=== PATIENT | female | born 1940 | race Caucasian/White ===

== ENCOUNTER → 2016-09-29 | Outpatient (CLI) | payer MEDICARE, OTHER | LOC: RAD 09:21 | PROVIDERS: ATTEND Specialist | DX: C34.32 Malignant neoplasm of lower lobe, left bronchus or lung (principal) | CPT/HCPCS: 71260; 74177 ==

== ENCOUNTER → 2016-11-24 | Outpatient (CLI) | payer MEDICARE, OTHER | LOC: RAD 07:02 | PROVIDERS: ATTEND Internal Medicine | DX: C34.32 Malignant neoplasm of lower lobe, left bronchus or lung (principal) | CPT/HCPCS: 71260; 74177 ==

== ENCOUNTER → 2017-01-01 | Outpatient (CLI) | payer MEDICARE, OTHER | LOC: WI 07:56 | PROVIDERS: ATTEND Family Medicine | DX: Z12.31 Encounter for screening mammogram for malignant neoplasm of breast (principal) | CPT/HCPCS: 77063; G0202; 77067 ==

== ENCOUNTER → 2017-01-19 | Outpatient (CLI) | payer MEDICARE, OTHER | LOC: RAD 07:57 | PROVIDERS: ATTEND Internal Medicine | DX: C34.32 Malignant neoplasm of lower lobe, left bronchus or lung (principal) | CPT/HCPCS: 71260; 74177 ==

== ENCOUNTER → 2017-03-16 | Outpatient (CLI) | payer MEDICARE, OTHER ==
--- NOTE | 2017-03-16 10:17 | RADIOLOGY REPORT (SQ) ---
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 Images reviewed with lung, soft tissue and bone windows. Reconstructed coronal a nd sagittal MPR images reviewed. All images stored on PACS. CT scan of the abdomen and pelvis performed with intravenous and without oral contrastusing helical s karina technique with dynamic intravenous contrast injection. Images reviewed with lung, soft tissu e and bone windows. Reconstructed coronal and sagittal MPR images reviewed. Delayed images for eval uation of the urinary system also acquired and evaluated. All images stored on PACS. All CT scanners at this facility use dose modulation, iterative reconstruction, and/or weight based d osing when appropriate to reduce radiation dose to as low as reasonably achievable (ALARA). [facility]: Dose Right [facility]: CareDose [facility]: Dose Right [facility]: Teradose 4D [facility]: [employer] RADIATION DOSE: Up-to-date CT equipment and radiation dose reduction techniques were employed. CTDIv ol: 4.7 - 15.7 mGy. DLP: 1218 mGy-cm. . LIMITATIONS: None. FINDINGS: CHEST: LUNGS AND PLEURA: No change in appearance of the lungs and parenchyma compared to previous exams. St able findings are as follows: 11 mm scarring medial right upper lobe/upper hilum image 45 13 to 14 mm stable nodule just above the minor fissure right upper lobe axial image 60 [place] from lung parenchymal wedge resections in the medial right upper lobe and superior segment lo wer lobe Stable noncalcified 5 mm right face and 9 mm left base lung parenchymal nodules HILAR AND MEDIASTINAL STRUCTURES: No identified masses or abnormal nodes. HEART AND VASCULAR STRUCTURES: No aneurysm or dissection. No central pulmonary emboli. No pericardi al effusion. HARDWARE: Right-sided permanent central line tip superior vena cava THYROID AND OTHER SOFT TISSUES: No masses. No adenopathy. BONES: No significant finding. OTHER: No other significant finding. ABDOMEN AND PELVIS: LIVER: Normal size. No masses or dilated ducts. SPLEEN: Normal size. No focal lesions. PANCREAS: No masses. No significant calcifications. No adjacent inflammation or peripancreatic fluid collections. Pancreatic duct not dilated. GALLBLADDER: Multiple stones without gallbladder wall thickening or pericholecystic fluid. ADRENAL GLANDS: No significant masses or asymmetry. RIGHT KIDNEY AND URETER: Post wedge resection of a right lower pole mass. Several small subcentimete r right renal cortical cysts are present, stable. No right kidney stones or hydronephrosis/hydrouret er LEFT KIDNEY AND URETER: No solid masses. No significant calcification. No hydronephrosis or hydrouret er. Stable 1 cm left lower pole renal cortical cyst AORTA AND VESSELS: Heavily calcified abdominal aorta and major branches without abdominal aortic aneu rysm RETROPERITONEUM: No retroperitoneal adenopathy, hemorrhage or masses. BOWEL AND PERITONEAL CAVITY: No masses or inflammatory changes. No free fluid or peritoneal masses. Descending colon and sigmoid colon diverticuli without CT signs of acute diverticulitis. Left inguin al hernia containing nonobstructed distal descending colon. APPENDIX: Not identified. No right lower quadrant inflammation ABDOMINAL WALL: Right lower quadrant inguinal hernia containing nonobstructed distal descending colon BONES: No significant or acute findings. OTHER: No other significant finding. IMPRESSION: Stable appearance of the chest abdomen and pelvis Left inguinal hernia containing nonobstructed distal descending colon TECHNICAL DOCUMENTATION: JOB ID: [id number] Quality ID # 436: Final reports with documentation of one or more dose reduction techniques (e.g., Au tomated exposure control, adjustment of the mA and/or kV according to patient size, use of iterative reconstruction technique) 2010 [employer]- All Rights Reserved
== END ==
LOC: RAD 07:36
PROVIDERS: ATTEND Internal Medicine
DX: C34.32 Malignant neoplasm of lower lobe, left bronchus or lung (principal)
CPT/HCPCS: 71260; 74177; 82565

== ENCOUNTER → 2017-05-11 | Outpatient (CLI) | payer MEDICARE, OTHER ==
--- NOTE | 2017-05-11 11:50 | RADIOLOGY REPORT (SQ) ---
EXAM DESCRIPTION: CT CHEST WITH; CT ABD/PELVIS WITH IV ONLY COMPLETED DATE/TIME: 05/11/2017 8:30 am REASON FOR STUDY: LUNG CA (C34.32) C34.32 MALIGNANT NEOPLASM OF LOWER LOBE, LEFT BRONCHUS OR GABRIELLA COMPARISON: PET-CT 06/26/2012 CT chest abdomen pelvis 12/27/2012, 11/03/2013, 10/26/2014, 10/28/2015, 08/04/2016, 09/29/2016, 03/16/2017 CONTRAST TYPE AND DOSE: contrast/concentration: Isovue 300.00 mg/ml; Total Contrast Delivered: 69.0 ml; Total Saline Delivered: 65.0 ml RENAL FUNCTION: Creatinine 1.2 TECHNIQUE: CT scan of the chest performed using helical scanning technique with dynamic intravenous contrast injection. Images reviewed with lung, soft tissue and bone windows. Reconstructed coronal a nd sagittal MPR images reviewed. All images stored on PACS. CT scan of the abdomen and pelvis performed with intravenous and with oral contrastusing helical scan daniella technique with dynamic intravenous contrast injection. Images reviewed with lung, soft tissue a nd bone windows. Reconstructed coronal and sagittal MPR images reviewed. Delayed images for evaluat ion of the urinary system also acquired and evaluated. All images stored on PACS. All CT scanners at this facility use dose modulation, iterative reconstruction, and/or weight based d osing when appropriate to reduce radiation dose to as low as reasonably achievable (ALARA). [facility]: Dose Right [facility]: CareDose [facility]: Dose Right [facility]: Teradose 4D [facility]: [employer] RADIATION DOSE: Up-to-date CT equipment and radiation dose reduction techniques were employed. CTDIv ol: 4.5 - 6.4 mGy. DLP: 748 mGy-cm. . LIMITATIONS: None. FINDINGS: CHEST: LUNGS AND PLEURA: No worrisome pulmonary nodules. There are surgical costa in the medial right agusto g apex, and superior segment left lower lobe. Scarring in the medial right upper lobe on axial image 42, with a 8 to 9 mm area of nodularity, sligh tly smaller than on 08/04/2016. Stable spiculated nodule in the right middle lobe 14 mm in diameter axial image 64, unchanged from ltiple previous exams. No pleural effusions. No pneumothorax. No acute infiltrates. HILAR AND MEDIASTINAL STRUCTURES: No identified masses or abnormal nodes. HEART AND VASCULAR STRUCTURES: No aneurysm or dissection. No central pulmonary emboli. No pericardi al effusion. HARDWARE: Left-sided permanent line tip in the superior vena cava THYROID AND OTHER SOFT TISSUES: No masses. No adenopathy. BONES: No significant finding. OTHER: No other significant finding. ABDOMEN AND PELVIS: LIVER: Normal size. No masses. No dilated ducts. SPLEEN: Normal size. No focal lesions. PANCREAS: No masses. No significant calcifications. No adjacent inflammation or peripancreatic fluid collections. Pancreatic duct not dilated. GALLBLADDER: Gallstones. No inflammatory changes to suggest cholecystitis. ADRENAL GLANDS: 8 mm right adrenal nodule unchanged from 2012. Left adrenal gland unremarkable. RIGHT KIDNEY AND URETER: No solid masses. No significant calcification. No hydronephrosis or hydroure ter. Stable cortical scarring right lower pole kidney from prior wedge resection of a renal mass. S table subcentimeter cyst right upper pole kidney. LEFT KIDNEY AND URETER: No solid masses. No significant calcification. No hydronephrosis or hydrouret er. Stable small 1 cm lower pole renal cortical cyst. AORTA AND VESSELS: Heavily calcified. No aneurysm. No dissection. Renal arteries, SMA, celiac withou t stenosis. RETROPERITONEUM: No retroperitoneal adenopathy, hemorrhage or masses. BOWEL AND PERITONEAL CAVITY: No masses or inflammatory changes. No free fluid or peritoneal masses. Colonic diverticuli without CT signs of diverticulitis. APPENDIX: Normal. ABDOMINAL WALL: Left lower quadrant inguinal hernia containing a short segment of nonobstructed dista l descending colon BONES: No significant or acute findings. OTHER: No other significant finding. IMPRESSION: Stable appearance of the chest abdomen pelvis compared to previous studies TECHNICAL DOCUMENTATION: JOB ID: [id number] Quality ID # 436: Final reports with documentation of one or more dose reduction techniques (e.g., Au tomated exposure control, adjustment of the mA and/or kV according to patient size, use of iterative reconstruction technique) 2010 [employer]- All Rights Reserved
== END ==
LOC: RAD 07:37
PROVIDERS: ATTEND Internal Medicine Hematology & Oncology
DX: C34.32 Malignant neoplasm of lower lobe, left bronchus or lung (principal)
CPT/HCPCS: 71260; 74177

== ENCOUNTER → 2017-07-06 | Outpatient (CLI) | payer MEDICARE, OTHER ==
--- NOTE | 2017-07-06 16:09 | RADIOLOGY REPORT (SQ) ---
EXAM DESCRIPTION: CT CHEST WITH; CT ABD/PELVIS WITH IV ONLY COMPLETED DATE/TIME: 07/06/2017 9:12 am REASON FOR STUDY: LUNG CA (C34.32) C34.32 MALIGNANT NEOPLASM OF LOWER LOBE, LEFT BRONCHUS OR GABRIELLA COMPARISON: CT chest abdomen pelvis 05/11/2017, 03/16/2017, 01/19/2017, 09/29/2016, 12/27/2012 PET-CT 06/26/2012 CONTRAST TYPE AND DOSE: contrast/concentration: Isovue 300.00 mg/ml; Total Contrast Delivered: 69.0 ml; Total Saline Delivered: 65.0 ml RENAL FUNCTION: Creatinine 1.0 TECHNIQUE: CT scan of the chest performed using helical scanning technique with dynamic intravenous contrast injection. Images reviewed with lung, soft tissue and bone windows. Reconstructed coronal a nd sagittal MPR images reviewed. All images stored on PACS. CT scan of the abdomen and pelvis performed with intravenous and without oral contrastusing helical s karina technique with dynamic intravenous contrast injection. Images reviewed with lung, soft tissu e and bone windows. Reconstructed coronal and sagittal MPR images reviewed. Delayed images for eval uation of the urinary system also acquired and evaluated. All images stored on PACS. All CT scanners at this facility use dose modulation, iterative reconstruction, and/or weight based d osing when appropriate to reduce radiation dose to as low as reasonably achievable (ALARA). [facility]: Dose Right [facility]: CareDose [facility]: Dose Right [facility]: Teradose 4D [facility]: [employer] RADIATION DOSE: Up-to-date CT equipment and radiation dose reduction techniques were employed. CTDIv ol: 4.5 - 6.9 mGy. DLP: 802 mGy-cm. . LIMITATIONS: None. FINDINGS: CHEST: LUNGS AND PLEURA: No new nodules, infiltrates, or pleural effusion. There are surgical costa in the medial right lung apex and superior segment left lower lobe, unchan ged. Stable spiculated nodule right middle lobe axial image 63 and coronal image 41. Stable noncalcified granuloma anterior lingula axial image 55. HILAR AND MEDIASTINAL STRUCTURES: No identified masses or abnormal nodes. HEART AND VASCULAR STRUCTURES: No aneurysm or dissection. No central pulmonary emboli. No pericardi al effusion. HARDWARE: Left-sided permanent central line, tip superior vena cava. THYROID AND OTHER SOFT TISSUES: No masses. No adenopathy. BONES: No significant finding. OTHER: No other significant finding. ABDOMEN AND PELVIS: LIVER: Normal size. No masses. No dilated ducts. SPLEEN: Normal size. No focal lesions. PANCREAS: No masses. No significant calcifications. No adjacent inflammation or peripancreatic fluid collections. Pancreatic duct not dilated. GALLBLADDER: Gallstones. No inflammatory changes to suggest cholecystitis. ADRENAL GLANDS: 8 mm right adrenal nodule unchanged from 2012 RIGHT KIDNEY AND URETER: Right lower pole cortical thinning from wedge resection for renal mass. No solid nodules on today's CT exam. Less than 1 cm cyst right lower pole kidney. No significant calcif ication. No hydronephrosis or hydroureter. LEFT KIDNEY AND URETER: No solid masses. Benign less than 2 cm diameter left renal cysts. No signif icant calcification. No hydronephrosis or hydroureter. AORTA AND VESSELS: No aneurysm. Heavily calcified abdominal aorta without aneurysm. Suspect at leas t 50% diameter renal artery stenosis on the left. RETROPERITONEUM: No retroperitoneal adenopathy, hemorrhage or masses. BOWEL AND PERITONEAL CAVITY: No masses or inflammatory changes. No free fluid or peritoneal masses. APPENDIX: Not identified. No right lower quadrant inflammatory change ABDOMINAL WALL: Left inguinal hernia containing mesenteric fat and nonobstructed colon on axial image s 60-63, and coronal images 31-34. PELVIS: Post hysterectomy. No adenopathy. No free fluid. BONES: Diffuse degenerative disc changes lumbar spine. OTHER: No other significant finding. IMPRESSION: No CT evidence of metastatic lung cancer or renal cell carcinoma TECHNICAL DOCUMENTATION: JOB ID: [id number] Quality ID # 436: Final reports with documentation of one or more dose reduction techniques (e.g., Au tomated exposure control, adjustment of the mA and/or kV according to patient size, use of iterative reconstruction technique) 2010 [employer]- All Rights Reserved
== END ==
LOC: RAD 08:18
PROVIDERS: ATTEND Internal Medicine
DX: C34.32 Malignant neoplasm of lower lobe, left bronchus or lung (principal)
CPT/HCPCS: 71260; 74177

== ENCOUNTER → 2017-08-31 | Outpatient (CLI) | payer MEDICARE, OTHER ==
--- NOTE | 2017-08-31 10:55 | RADIOLOGY REPORT (SQ) ---
EXAM DESCRIPTION: CT CHEST WITH COMPLETED DATE/TIME: 08/31/2017 7:50 am REASON FOR STUDY: LUNG CA (C34.32) C34.32 MALIGNANT NEOPLASM OF LOWER LOBE, LEFT BRONCHUS OR GABRIELLA COMPARISON: 07/06/2017 05/11/2017 TECHNIQUE: CT scan of the chest performed using helical scanning technique with dynamic intravenous contrast injection. Images reviewed with lung, soft tissue and bone windows. Reconstructed coronal and sagittal MPR images reviewed. All images stored on PACS. All CT scanners at this facility use dose modulation, iterative reconstruction, and/or weight based d osing when appropriate to reduce radiation dose to as low as reasonably achievable (ALARA). [facility]: Dose Right [facility]: CareDose [facility]: Dose Right [facility]: Teradose 4D [facility]: [employer] CONTRAST TYPE AND DOSE: 69 cc Isovue 370- low osmolar. RENAL FUNCTION: Creatinine 1.1 BUN 21 RADIATION DOSE: Total exam DLP: 827 mGy cm. LIMITATIONS: None. FINDINGS: LUNGS AND PLEURA: Once again there is seen a stable spiculated nodule in the right middle lobe. There is a small stable nodule seen anteriorly in the lingula on image 57. No new nodules are seen. There is no pleural effusion. HILAR AND MEDIASTINAL STRUCTURES: No identified masses or abnormal nodes. HEART AND VASCULAR STRUCTURES: No aneurysm or dissection. No central pulmonary emboli. No pericardi al effusion. HARDWARE: Injection port is present on the left. The catheter is in the superior vena cava. UPPER ABDOMEN: See separate report of the CT of the abdomen. THYROID AND OTHER SOFT TISSUES: No masses. No adenopathy. BONES: Mild scoliosis. No metastatic lesions are seen in the bones. OTHER: No other significant finding. IMPRESSION: Stable findings in the chest. TECHNICAL DOCUMENTATION: JOB ID: [id number] Quality ID # 436: Final reports with documentation of one or more dose reduction techniques (e.g., Au tomated exposure control, adjustment of the mA and/or kV according to patient size, use of iterative reconstruction technique) 2010 [employer]- All Rights Reserved
--- NOTE | 2017-08-31 11:47 | RADIOLOGY REPORT (SQ) ---
EXAM DESCRIPTION: CT ABD/PELVIS WITH IV ONLY COMPLETED DATE/TIME: 08/31/2017 7:50 am REASON FOR STUDY: LUNG CA (C34.32) C34.32 MALIGNANT NEOPLASM OF LOWER LOBE, LEFT BRONCHUS OR GABRIELLA COMPARISON: 07/06/2017 TECHNIQUE: CT scan of the abdomen and pelvis performed using helical scanning technique with dynamic intravenous contrast injection. No oral contrast. Images reviewed with lung, soft tissue, and bone windows. Reconstructed coronal and sagittal MPR images reviewed. Delayed images for evaluation of the urinary system also acquired. All images stored on PACS. All CT scanners at this facility use dose modulation, iterative reconstruction, and/or weight based d osing when appropriate to reduce radiation dose to as low as reasonably achievable (ALARA). [facility]: Dose Right [facility]: CareDose [facility]: Dose Right [facility]: Teradose 4D [facility]: [employer] CONTRAST TYPE AND DOSE: contrast/concentration: Isovue 370.00 mg/ml; Total Contrast Delivered: 69.0 ml; Total Saline Delivered: 65.0 ml RENAL FUNCTION: Creatinine 1.1 BUN 21 RADIATION DOSE: CT Rad equipment meets quality standard of care and radiation dose reduction techniq ues were employed. CTDIvol: 4.6 - 7.3 mGy. DLP: 827 mGy-cm.. LIMITATIONS: None. FINDINGS: LOWER CHEST: See separate report of the CT of the chest. LIVER: Normal size. No masses. No dilated ducts. SPLEEN: Normal size. No focal lesions. PANCREAS: No masses. No significant calcifications. No adjacent inflammation or peripancreatic fluid collections. Pancreatic duct not dilated. GALLBLADDER: Gallstones are present. There is no gallbladder wall thickening or pericholecystic flui d. ADRENAL GLANDS: Stable subcentimeter right adrenal nodule. RIGHT KIDNEY AND URETER: No solid masses. Surgical changes in the lower pole. No significant calci fications. No hydronephrosis or hydroureter. LEFT KIDNEY AND URETER: No solid masses. No significant calcifications. No hydronephrosis or hydr oureter. AORTA AND VESSELS: No aneurysm. No dissection. Atherosclerosis. Plaques are present at the origins of celiac, SMA, and renal arteries. Considerable atherosclerosis is present in the proximal left re nal artery. RETROPERITONEUM: No retroperitoneal adenopathy, hemorrhage or masses. BOWEL AND PERITONEAL CAVITY: Diverticulosis involving the descending and sigmoid colon. No acute inf lammatory changes are seen. APPENDIX: Not identified. PELVIS: The urinary bladder is normal. Uterus is absent. There is no adnexal mass or fluid collecti on. ABDOMINAL WALL: There is a small anterolateral hernia. See the image 58 series 8. Contains a nonobs tructed loop of bowel. BONES: Mild scoliosis. No osseous metastases seen. OTHER: No other significant finding. IMPRESSION: 1. No metastases are seen in the abdomen or pelvis. 2. Cholelithiasis with no evidence of cholecystitis. 3. Stable right adrenal nodule. 4. Surgical changes in the right kidney. 5. Atherosclerosis as described. 6. Diverticulosis coli. 7. Abdominal wall hernia as described. TECHNICAL DOCUMENTATION: JOB ID: [id number] Quality ID # 436: Final reports with documentation of one or more dose reduction techniques (e.g., Au tomated exposure control, adjustment of the mA and/or kV according to patient size, use of iterative reconstruction technique) 2010 [employer]- All Rights Reserved
== END ==
LOC: RAD 07:15
PROVIDERS: ATTEND Internal Medicine
DX: C34.32 Malignant neoplasm of lower lobe, left bronchus or lung (principal)
CPT/HCPCS: 71260; 74177

== ENCOUNTER 2017-10-29 12:43 | Outpatient (CLI) | payer MEDICARE, OTHER ==
[2017-10-29] MEDS ORDERED: NORMAL SALINE 1000 ML 1,000 ML IV PRN (13:08)
[2017-10-29 13:16] VITALS: BP 115/49
== END 2017-10-29 15:16 | disposition home or self-care (01) ==
LOC: II 12:43 → 5TH 13:37 → II 15:16
PROVIDERS: ATTEND Internal Medicine
PROC: 3E0437Z Introduction of Electrolytic and Water Balance Substance into Central Vein, Percutaneous Approach (ICD-10-PCS; principal; 2017-10-29)
DX: E86.0 Dehydration (principal); C34.32 Malignant neoplasm of lower lobe, left bronchus or lung
CPT/HCPCS: 96360

== ENCOUNTER → 2017-11-01 | Outpatient (CLI) | payer MEDICARE, OTHER ==
--- NOTE | 2017-11-01 13:34 | RADIOLOGY REPORT (SQ) ---
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 Images reviewed with lung, soft tissue and bone windows. Reconstructed coronal a nd sagittal MPR images reviewed. All images stored on PACS. CT scan of the abdomen and pelvis performed with intravenous and without oral contrastusing helical s karina technique with dynamic intravenous contrast injection. Images reviewed with lung, soft tissu e and bone windows. Reconstructed coronal and sagittal MPR images reviewed. Delayed images for eval uation of the urinary system also acquired and evaluated. All images stored on PACS. All CT scanners at this facility use dose modulation, iterative reconstruction, and/or weight based d osing when appropriate to reduce radiation dose to as low as reasonably achievable (ALARA). [facility]: Dose Right [facility]: CareDose [facility]: Dose Right [facility]: Teradose 4D [facility]: [employer] RADIATION DOSE: CT Rad equipment meets quality standard of care and radiation dose reduction techniq ues were employed. CTDIvol: 5.7 - 9.7 mGy. DLP: 1117 mGy-cm. . LIMITATIONS: None. FINDINGS: CHEST: LUNGS AND PLEURA: No new findings worrisome for recurrent or metastatic disease. There are multiple pulmonary findings which are stable compared to studies dating back to 2013 as follows: Old staple line medial right upper lobe Minimal scarring along the anterior segmental bronchus right upper lobe Stable spiculated right middle lobe 10 mm nodule axial image 65 Stable left lower lobe staple line with adjacent bandlike scarring in the left lower lobe Stable 6 mm nodule medial left lung base No acute infiltrates. No pleural effusion. No pneumothorax. HILAR AND MEDIASTINAL STRUCTURES: No identified masses or abnormal nodes. HEART AND VASCULAR STRUCTURES: No aneurysm or dissection. No central pulmonary emboli. No pericardi al effusion. HARDWARE: Left-sided permanent central line tip superior vena cava THYROID AND OTHER SOFT TISSUES: No masses. No adenopathy. BONES: No significant finding. OTHER: No other significant finding. ABDOMEN AND PELVIS: LIVER: Normal size. No masses. No dilated ducts. SPLEEN: Normal size. No focal lesions. PANCREAS: No masses. No significant calcifications. No adjacent inflammation or peripancreatic fluid collections. Pancreatic duct not dilated. GALLBLADDER: Gallstones. No inflammatory changes to suggest cholecystitis. ADRENAL GLANDS: Stable small bilateral adrenal nodules RIGHT KIDNEY AND URETER: No solid masses. Subcentimeter cysts in the right mid and upper pole kidney . Partial nephrectomy right lower pole. No significant calcification. No hydronephrosis or hydroure ter. LEFT KIDNEY AND URETER: No solid masses. Stable 1 cm cyst posterior left mid pole kidney. 5 mm intr arenal nonobstructive calculus posterior left mid pole kidney. No hydronephrosis or hydroureter. AORTA AND VESSELS: Heavily calcified abdominal aorta without aneurysm. Calcified visceral artery josesito gins. RETROPERITONEUM: No retroperitoneal adenopathy, hemorrhage or masses. BOWEL AND PERITONEAL CAVITY: No masses or inflammatory changes. No free fluid or peritoneal masses. Colon diverticulosis without CT signs of acute diverticulitis APPENDIX: Normal. ABDOMINAL WALL: No masses. No hernias. PELVIS: No mass or free fluid. Normal bladder. Post hysterectomy BONES: No significant or acute findings. OTHER: No other significant finding. IMPRESSION: Stable appearance of the chest abdomen pelvis. No new lesions. TECHNICAL DOCUMENTATION: JOB ID: [id number] Quality ID # 436: Final reports with documentation of one or more dose reduction techniques (e.g., Au tomated exposure control, adjustment of the mA and/or kV according to patient size, use of iterative reconstruction technique) 2010 [employer]- All Rights Reserved
== END ==
LOC: RAD 12:28
PROVIDERS: ATTEND Internal Medicine
DX: C34.32 Malignant neoplasm of lower lobe, left bronchus or lung (principal)
CPT/HCPCS: 71260; 74177

== ENCOUNTER → 2017-12-28 | Outpatient (CLI) | payer MEDICARE, OTHER ==
--- NOTE | 2017-12-28 09:43 | RADIOLOGY REPORT (SQ) ---
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 Images reviewed with lung, soft tissue and bone windows. Reconstructed coronal a nd sagittal MPR images reviewed. All images stored on PACS. CT scan of the abdomen and pelvis performed with intravenous and without oral contrastusing helical s karina technique with dynamic intravenous contrast injection. Images reviewed with lung, soft tissu e and bone windows. Reconstructed coronal and sagittal MPR images reviewed. Delayed images for eval uation of the urinary system also acquired and evaluated. All images stored on PACS. All CT scanners at this facility use dose modulation, iterative reconstruction, and/or weight based d osing when appropriate to reduce radiation dose to as low as reasonably achievable (ALARA). [facility]: Dose Right [facility]: CareDose [facility]: Dose Right [facility]: Teradose 4D [facility]: Smart Technologies RADIATION DOSE: CT Rad equipment meets quality standard of care and radiation dose reduction techniq ues were employed. CTDIvol: 4.6 - 7.0 mGy. DLP: 809 mGy-cm. . LIMITATIONS: None. FINDINGS: CHEST: LUNGS AND PLEURA: In the medial left lung base on axial image 86, an 11 mm nodule is present in the l eft lower lobe adjacent to the dorsal aspect of the descending thoracic aorta. This is larger of yuri n on previous studies were it measured 6-7 mm in size. No pleural effusion. No pneumothorax. Multiple findings in the lung parenchyma bilaterally are stable as follows: Old staple line medial right upper lobe And linear scarring anterior segmental bronchus right upper lobe 10 mm spiculated nodule right middle lobe Left lower lobe staple line with bandlike scarring HILAR AND MEDIASTINAL STRUCTURES: No identified masses or abnormal nodes. HEART AND VASCULAR STRUCTURES: No aneurysm or dissection. No central pulmonary emboli. No pericardi al effusion. Aortic valve calcification. Mild spotty coronary artery calcifications. HARDWARE: Left-sided permanent central line tip superior vena cava THYROID AND OTHER SOFT TISSUES: No masses. No adenopathy. BONES: No significant finding. OTHER: No other significant finding. ABDOMEN AND PELVIS: LIVER: Normal size. No masses. No dilated ducts. SPLEEN: Normal size. No focal lesions. PANCREAS: No masses. No significant calcifications. No adjacent inflammation or peripancreatic fluid collections. Pancreatic duct not dilated. GALLBLADDER: Multiple stones without gallbladder wall thickening or pericholecystic fluid. ADRENAL GLANDS: Stable small subcentimeter bilateral adrenal nodules RIGHT KIDNEY AND URETER: No solid masses. No significant calcification. No hydronephrosis or hydroure ter. Chronic cortical scarring right lower pole kidney LEFT KIDNEY AND URETER: 1.7 cm enhancing mass anterior edge left lower pole kidney axial image 34, co dru image 49, and sagittal image 50, worrisome for small primary renal cell tumor. Intrarenal left lower pole nonobstructive 5 mm stone. No hydronephrosis or hydroureter. AORTA AND VESSELS: No aneurysm. No dissection. Heavily calcified abdominal aorta and major visceral arteries. RETROPERITONEUM: No retroperitoneal adenopathy, hemorrhage or masses. BOWEL AND PERITONEAL CAVITY: No masses or inflammatory changes. No free fluid or peritoneal masses. Descending and sigmoid colon diverticuli without CT signs of acute diverticulitis. There is a left l ower quadrant femoral hernia containing nonobstructed distal descending colon best shown on axial lynette ges 56-61, and sagittal image 52. APPENDIX: Normal. ABDOMINAL WALL: Left lower quadrant femoral hernia containing nonobstructed distal descending colon PELVIS: No mass or free fluid. Normal bladder. Post hysterectomy BONES: No significant or acute findings. OTHER: No other significant finding. IMPRESSION: Increase in size of smooth round nodule in the left lung base, dorsal to the descending thoracic aorta. 1.7 cm enhancing nodule in the left lower pole kidney worrisome for small primary renal cell neoplasm . Left femoral hernia TECHNICAL DOCUMENTATION: JOB ID: [id number] Quality ID # [id number]: Final reports with documentation of one or more dose reduction techniques (e.g., Au tomated exposure control, adjustment of the mA and/or kV according to patient size, use of iterative reconstruction technique) 2010 [employer]- All Rights Reserved Reading location - IP/workstation name: [email or web address]
== END ==
LOC: RAD 07:04
PROVIDERS: ATTEND Internal Medicine
DX: C34.32 Malignant neoplasm of lower lobe, left bronchus or lung (principal)
CPT/HCPCS: 71260; 74177

== ENCOUNTER → 2018-01-27 | Outpatient (CLI) | payer MEDICARE, OTHER ==
--- NOTE | 2018-01-27 08:56 | WOMENS IMAGING REPORT ---
EXAM DESCRIPTION: 3D SCREENING MAMMO BILAT COMPLETED DATE/TIME: 01/27/2018 8:12 am REASON FOR STUDY: SCREENING MAMMO Z12.31 ENCNTR SCREEN MAMMOGRAM FOR MALIGNANT NEOPLASM OF ESTEFANÍA COMPARISON: Multiple since 2008 TECHNIQUE: Standard craniocaudal and mediolateral oblique views of each breast recorded using digita l acquisition and breast tomosynthesis. LIMITATIONS: None. FINDINGS: Findings present which are benign by mammographic criteria. No suspicious masses, calcifi cations or architectural distortion. Pertinent benign findings: Benign right breast calcifications Read with the assistance of CAD. .[facility] - R2 Cenova Version 1.3 .[facility] - R2 Cenova Version 1.3 .[facility] - R2 Cenova Version 2.4 .[facility] [place] - R2 Cenova Version 2.4 .[facility] - R2 [employer] Supervisor Version 9.2 Benign mammographic findings may include one or more of the following: Smooth masses, popcorn/rim/co arse calcifications, asymmetries, post-procedure changes, and lesions with long-standing stability. IMPRESSION: BENIGN MAMMOGRAPHIC FINDINGS. BIRADS 2 BREAST DENSITY: b. There are scattered areas of fibroglandular density. BIRAD: 2 BENIGN FINDING(S) RECOMMENDATION: RECOMMENDATION: ROUTINE SCREENING Please continue yearly bilateral screening tomosynthesis in January 2019 COMMENT: The patient has been notified of the results by letter per MQSA requirements. Additional no tification policies are in place for contacting patient with suspicious or incomplete findings. Quality ID #[id number]: The [employer] recommends an annual screening mammogram for women aged 40 years or over. This facility utilizes a reminder system to ensure that all patients receive reminder letters, and/or direct phone calls for appointments. This includes reminders for routine scr eening mammograms, diagnostic mammograms, or other Breast Imaging Interventions when appropriate. Th is patient will be placed in the appropriate reminder system. The [employer] (ACR) has developed recommendations for screening MRI of the breast s in certain patient populations, to be used in conjunction with mammography. Breast MRI surveillanc e may be appropriate for women with more than 20% lifetime risk of developing breast cancer as deter mined by genetic testing, significant family history of the disease, or history of mantle radiation f or Hodgkins Disease. ACR Practice Guidelines 2008. DBT Technology DBT is a type of tomographic mammography. With conventional mammography, overlapping breast tissue ma y make lesions difficult to detect, even with good compression. DBT uses an x-ray tube that rotates a round the breast, taking images at different angles. These images are then combined to create thin sl ices of the breast that the radiologist can view as a 3D reconstruction. The Stretch unit can perform full-field digital mammograms (2D imaging); or DBT (3D imaging); or both, in a combination mode that quickly performs both the mammogram and the tomosynthesis scan while the breast is still compressed. PQRS 6045F: Fluoroscopic imaging is not utilized for breast tomosynthesis. TECHNICAL DOCUMENTATION: FINDING NUMBER: (1) ASSESSMENT: (1) JOB ID: [id number] [employer]- All Rights Reserved Reading location - IP/workstation name: [email or web address]
== END ==
LOC: WI 07:58
PROVIDERS: ATTEND Internal Medicine
DX: Z12.31 Encounter for screening mammogram for malignant neoplasm of breast (principal)
CPT/HCPCS: 77063; 77067

== ENCOUNTER → 2018-02-18 | Outpatient (CLI) | payer MEDICARE, OTHER ==
--- NOTE | 2018-02-18 09:31 | RADIOLOGY REPORT (SQ) ---
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 Images reviewed with lung, soft tissue and bone windows. Reconstructed coronal a nd sagittal MPR images reviewed. All images stored on PACS. CT scan of the abdomen and pelvis performed with intravenous and without oral contrastusing helical s karina technique with dynamic intravenous contrast injection. Images reviewed with lung, soft tissu e and bone windows. Reconstructed coronal and sagittal MPR images reviewed. Delayed images for eval uation of the urinary system also acquired and evaluated. All images stored on PACS. All CT scanners at this facility use dose modulation, iterative reconstruction, and/or weight based d osing when appropriate to reduce radiation dose to as low as reasonably achievable (ALARA). [facility]: Dose Right [facility]: CareDose [facility]: Dose Right [facility]: Teradose 4D [facility]: Smart [employer] RADIATION DOSE: CT Rad equipment meets quality standard of care and radiation dose reduction techniq ues were employed. CTDIvol: 4.6 - 6.4 mGy. DLP: 753 mGy-cm. . LIMITATIONS: None. FINDINGS: CHEST: LUNGS AND PLEURA: Lung findings are stable compared to 12/28/2017 as follows: 10 mm nodule left posteromedial lung base axial image 81 just dorsal to the descending thoracic aorta Old staple line medial right upper lobe Linear bandlike scarring medial right upper lobe 10 mm spiculated nodule right middle lobe (unchanged since 2013) Left lower lobe staple line No new nodules. No acute infiltrates. No pleural effusion. No pneumothorax. HILAR AND MEDIASTINAL STRUCTURES: No identified masses or abnormal nodes. HEART AND VASCULAR STRUCTURES: No aneurysm or dissection. No central pulmonary emboli. No pericardi al effusion. Calcified aortic arch, calcified coronary arteries are stable HARDWARE: Left-sided permanent central line tip superior vena cava. THYROID AND OTHER SOFT TISSUES: No masses. No adenopathy. BONES: No significant finding. OTHER: No other significant finding. ABDOMEN AND PELVIS: LIVER: Normal size. No masses. No dilated ducts. SPLEEN: Normal size. No focal lesions. PANCREAS: No masses. No significant calcifications. No adjacent inflammation or peripancreatic fluid collections. Pancreatic duct not dilated. GALLBLADDER: Calcified stones in the gallbladder without gallbladder wall thickening or pericholecyst ic fluid. ADRENAL GLANDS: No significant masses or asymmetry. RIGHT KIDNEY AND URETER: No solid masses. No significant calcification. No hydronephrosis or hydroure ter. Post wedge resection right lower pole kidney. LEFT KIDNEY AND URETER: 2 cm exophytic solid enhancing nodule left lower pole kidney axial image 32 ( was 1.8 cm on 12/28/2017). No significant calcification. No hydronephrosis or hydroureter. AORTA AND VESSELS: No aneurysm. No dissection. Renal arteries, SMA, celiac patent. RETROPERITONEUM: No retroperitoneal adenopathy, hemorrhage or masses. BOWEL AND PERITONEAL CAVITY: No masses or inflammatory changes. No free fluid or peritoneal masses. There are descending and sigmoid colon diverticuli without CT signs of acute diverticulitis APPENDIX: Normal. ABDOMINAL WALL: Left lower quadrant inguinal or femoral hernia containing a short segment of distal d escending colon. PELVIS: No mass or free fluid. Normal bladder. Post hysterectomy BONES: No significant or acute findings. OTHER: No other significant finding. IMPRESSION: Stable 10 mm nodule in the medial left lung base Slight increase size of in left lower pole kidney enhancing 2 cm cortical nodule worrisome for neopla sm TECHNICAL DOCUMENTATION: JOB ID: [id number] Quality ID # 436: Final reports with documentation of one or more dose reduction techniques (e.g., Au tomated exposure control, adjustment of the mA and/or kV according to patient size, use of iterative reconstruction technique) 2010 [employer]- All Rights Reserved Reading location - IP/workstation name: [email or web address]
== END ==
LOC: RAD 07:20
PROVIDERS: ATTEND Internal Medicine
DX: C34.32 Malignant neoplasm of lower lobe, left bronchus or lung (principal); D49.512 Neoplasm of unspecified behavior of left kidney; K80.20 Calculus of gallbladder without cholecystitis without obstruction
CPT/HCPCS: 71260; 74177; 82565

== ENCOUNTER → 2018-04-18 | Outpatient (CLI) | payer MEDICARE, OTHER ==
--- NOTE | 2018-04-18 10:41 | RADIOLOGY REPORT (SQ) ---
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 Images reviewed with lung, soft tissue and bone windows. Reconstructed coronal and sagittal MPR images reviewed. All images stored on PACS. All CT scanners at this facility use dose modulation, iterative reconstruction, and/or weight based d osing when appropriate to reduce radiation dose to as low as reasonably achievable (ALARA). [facility]: Dose Right [facility]: CareDose [facility]: Dose Right [facility]: Teradose 4D [facility]: [employer] [place] CONTRAST TYPE AND DOSE: contrast/concentration: Isovue 300.00 mg/ml; Total Contrast Delivered: 67.0 ml; Total Saline Delivered: 65.0 ml RENAL FUNCTION: Creatinine 1.1 RADIATION DOSE: CT Rad equipment meets quality standard of care and radiation dose reduction techniq ues were employed. CTDIvol: 4.6 - 6.5 mGy. DLP: 770 mGy-cm. . LIMITATIONS: None. FINDINGS: LUNGS AND PLEURA: Stable appearance: Staple lines in right upper and left lower lobes. 1 0 mm middle lobe nodule stable since 2013. 10 mm nodule left posteromedial lung base unchanged. No new nodules. No effusions. HILAR AND MEDIASTINAL STRUCTURES: No identified masses or abnormal nodes. HEART AND VASCULAR STRUCTURES: No aneurysm or dissection. No central pulmonary emboli. No pericardi al effusion. HARDWARE: None in the chest. UPPER ABDOMEN: See separate report of the CT of the abdomen. THYROID AND OTHER SOFT TISSUES: No masses. No adenopathy. BONES: No significant finding. OTHER: No other significant finding. IMPRESSION: Stable pulmonary nodules. TECHNICAL DOCUMENTATION: JOB ID: [id number] Quality ID # 436: Final reports with documentation of one or more dose reduction techniques (e.g., Au tomated exposure control, adjustment of the mA and/or kV according to patient size, use of iterative reconstruction technique) 2010 [employer]- All Rights Reserved Reading location - IP/workstation name: [email or web address]
--- NOTE | 2018-04-18 11:19 | RADIOLOGY REPORT (SQ) ---
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 No oral contrast. Images reviewed with lung, soft tissue, and bone windows. Reconstructed coronal and sagittal MPR images reviewed. Delayed images for evaluation of the urinary system also acquired. All images stored on PACS. All CT scanners at this facility use dose modulation, iterative reconstruction, and/or weight based d osing when appropriate to reduce radiation dose to as low as reasonably achievable (ALARA). [facility]: Dose Right [facility]: CareDose [facility]: Dose Right [facility]: Teradose 4D [facility]: Smart [employer] CONTRAST TYPE AND DOSE: See separate report of the same date. RENAL FUNCTION: See separate report. RADIATION DOSE: . LIMITATIONS: None. FINDINGS: LOWER CHEST: See separate report of the CT of the chest. LIVER: Normal size. No masses. No dilated ducts. SPLEEN: Normal size. No focal lesions. PANCREAS: No masses. No significant calcifications. No adjacent inflammation or peripancreatic fluid collections. Pancreatic duct not dilated. GALLBLADDER: Gallstones. No inflammatory changes to suggest cholecystitis. ADRENAL GLANDS: No significant masses or asymmetry. RIGHT KIDNEY AND URETER: No solid masses. No significant calcifications. No hydronephrosis or hyd roureter. LEFT KIDNEY AND URETER: 2 cm solid exophytic lesion lower pole unchanged No significant calcificati ons. No hydronephrosis or hydroureter. AORTA AND VESSELS: No aneurysm. RETROPERITONEUM: No retroperitoneal adenopathy, hemorrhage or masses. BOWEL AND PERITONEAL CAVITY: Sigmoid diverticulosis. No masses or inflammatory changes. No free flui d or peritoneal masses. APPENDIX: Normal. PELVIS: No mass. No free fluid. Normal bladder. ABDOMINAL WALL: Small left inguinal hernia. BONES: No significant or acute findings. OTHER: No other significant finding. IMPRESSION: Unchanged solid mass lower pole left kidney. TECHNICAL DOCUMENTATION: JOB ID: [id number] Quality ID # [id number]: Final reports with documentation of one or more dose reduction techniques (e.g., Au tomated exposure control, adjustment of the mA and/or kV according to patient size, use of iterative reconstruction technique) 2010 [employer]- All Rights Reserved Reading location - IP/workstation name: [facility] [employer] [email or web address]
== END ==
LOC: RAD 07:44
PROVIDERS: ATTEND Internal Medicine
DX: C34.32 Malignant neoplasm of lower lobe, left bronchus or lung (principal); N28.89 Other specified disorders of kidney and ureter; K57.30 Diverticulosis of large intestine without perforation or abscess without bleeding
CPT/HCPCS: 71260; 74177; 82565

== ENCOUNTER → 2018-07-11 | Outpatient (CLI) | payer MEDICARE, OTHER ==
--- NOTE | 2018-07-11 09:16 | RADIOLOGY REPORT (SQ) ---
EXAM DESCRIPTION: CT CHEST WITH COMPLETED DATE/TIME: 07/11/2018 8:36 am REASON FOR STUDY: LUNG CA C34.32 MALIGNANT NEOPLASM OF LOWER LOBE, LEFT BRONCHUS OR GABRIELLA COMPARISON: 04/18/2018 TECHNIQUE: CT scan of the chest performed using helical scanning technique with dynamic intravenous contrast injection. Images reviewed with lung, soft tissue and bone windows. Reconstructed coronal and sagittal MPR and MIP images reviewed. All images stored on PACS. All CT scanners at this facility use dose modulation, iterative reconstruction, and/or weight based d osing when appropriate to reduce radiation dose to as low as reasonably achievable (ALARA). [facility]: Dose Right [facility]: CareDose [facility]: Dose Right [facility]: Teradose 4D [facility]: [employer] CONTRAST TYPE AND DOSE: 67.1 cc Omnipaque 350 RENAL FUNCTION: Creatinine- 1.1 RADIATION DOSE: Total exam DLP: 807.33 mGy-cm. LIMITATIONS: None. FINDINGS: LUNGS AND PLEURA: Stable post surgical changes in the lungs. Stable chronic inflammatory changes in the right upper and middle lobes with acute superimposed inflammatory changes, since the previous examination. Stable ill-defined spiculated nodule in the right middle lobe and other smalle r subcentimeter nodules in the right lung. Stable appearing nodules in the left lung and focal chron ic opacity in the left lower lobe. Emphysematous changes and mild bronchiectatic changes in the lungs, unchanged findings. No evidence of pneumothorax or pleural efusion. The central airways are clear. HILAR AND MEDIASTINAL STRUCTURES: No significant interval changes. HEART AND VASCULAR STRUCTURES: Dense atherosclerotic changes involving the thoracic aorta. Coronary artery calcifications. No aneurysm or dissection. No central pulmonary emboli. No pericardial eff usion. HARDWARE: Left Hivlvh-Z-Lalc catheter, stable finding. UPPER ABDOMEN: Please see CT abdomen report. THYROID AND OTHER SOFT TISSUES: No masses. No adenopathy. BONES: The osseous structures are stable in appearance. OTHER: No other significant finding. IMPRESSION: 1. Stable chronic inflammatory changes in the right upper and middle lobes with acute s uperimposed inflammatory changes, new findings since the previous examination dated 04/18/2018. 2. Post surgical changes in both hemithoraces, unchanged findings. 3. Stable appearing pulmonary nodules. Emphysematous changes in the lungs. 4. Additional stable findings as above. TECHNICAL DOCUMENTATION: JOB ID: [id number] Quality ID # [id number]: Final reports with documentation of one or more dose reduction techniques (e.g., Au tomated exposure control, adjustment of the mA and/or kV according to patient size, use of iterative reconstruction technique) 2010 [employer]- All Rights Reserved Reading location - IP/workstation name: [email or web address]
--- NOTE | 2018-07-11 09:36 | RADIOLOGY REPORT (SQ) ---
EXAM DESCRIPTION: CT ABD/PELVIS WITH IV ONLY COMPLETED DATE/TIME: 07/11/2018 8:36 am REASON FOR STUDY: LUNG CA C34.32 MALIGNANT NEOPLASM OF LOWER LOBE, LEFT BRONCHUS OR GABRIELLA COMPARISON: 04/18/2018 TECHNIQUE: CT scan of the abdomen and pelvis performed using helical scanning technique with dynamic intravenous contrast injection. No oral contrast. Images reviewed with lung, soft tissue, and bone windows. Reconstructed coronal and sagittal MPR images reviewed. Delayed images for evaluation of the urinary system also acquired. All images stored on PACS. All CT scanners at this facility use dose modulation, iterative reconstruction, and/or weight based d osing when appropriate to reduce radiation dose to as low as reasonably achievable (ALARA). [facility]: Dose Right [facility]: CareDose [facility]: Dose Right [facility]: Teradose 4D [facility]: [employer] CONTRAST TYPE AND DOSE: contrast/concentration: Isovue 350.00 mg/ml; Total Contrast Delivered: 67.0 ml; Total Saline Delivered: 65.0 ml RENAL FUNCTION: Creatinine 1.1 RADIATION DOSE: CT Rad equipment meets quality standard of care and radiation dose reduction techniq ues were employed. CTDIvol: 4.6 - 6.8 mGy. DLP: 807 mGy-cm.. LIMITATIONS: None. FINDINGS: LOWER CHEST: Please see CT chest report. LIVER: Normal size. No masses. No dilated ducts. The hepatic and portal veins are patent. SPLEEN: Normal size. No focal lesions. PANCREAS: No masses. No significant calcifications. No adjacent inflammation or peripancreatic fluid collections. Pancreatic duct not dilated. GALLBLADDER: Gallstones, stable findings. No inflammatory changes to suggest cholecystitis. ADRENAL GLANDS: No significant masses or asymmetry. RIGHT KIDNEY AND URETER: Small stable slightly enhancing exophytic lesion upper pole of the right ki dney, axial image 23, series 3. A few other smaller hypoattenuated lesions. Prior partial right nep hrectomy. Extrarenal pelvis, normal anatomic variant. LEFT KIDNEY AND URETER: Stable appearing 2.0 cm exophytic lesion lower pole of the left kidney with c entral area of cystic necrosis. There is also a heterogenous enhancing cortical lesion in the lower pole of the kidney, axial image 33, series 3. There are other stable smaller hypoattenuated left stefanie al lesions. Intravascular renal calcifications. No hydronephrosis or hydroureter. AORTA AND VESSELS: Dense atherosclerotic changes involving the abdominal aorta and branch vessels. No aneurysm. No dissection. Renal arteries, SMA, celiac without stenosis. RETROPERITONEUM: No retroperitoneal adenopathy, hemorrhage or masses. BOWEL AND PERITONEAL CAVITY: Constipation. Colonic diverticulae without evidence of diverticulitis. No free fluid. APPENDIX: Normal. PELVIS: Prior hysterectomy. No mass. No free fluid. Normal bladder. ABDOMINAL WALL: Stable left inguinal hernia. BONES: The osseous structures are stable in appearance. OTHER: Small stable hiatal hernia. IMPRESSION: 1. No significant interval changes since the prior study dated 04/18/2018. Stable appea ring exophytic left renal mass. The slightly enhancing heterogenous mass in the cortex of the lower pole of the left kidney is also stable. 2. Additional stable findings as above. TECHNICAL DOCUMENTATION: JOB ID: [id number] Quality ID # 436: Final reports with documentation of one or more dose reduction techniques (e.g., Au tomated exposure control, adjustment of the mA and/or kV according to patient size, use of iterative reconstruction technique) 2010 [employer]- All Rights Reserved Reading location - IP/workstation name: [email or web address]
== END ==
LOC: RAD 07:31
PROVIDERS: ATTEND Internal Medicine
DX: C34.32 Malignant neoplasm of lower lobe, left bronchus or lung (principal); K57.30 Diverticulosis of large intestine without perforation or abscess without bleeding; K59.00 Constipation, unspecified; K40.90 Unilateral inguinal hernia, without obstruction or gangrene, not specified as recurrent; K44.9 Diaphragmatic hernia without obstruction or gangrene
CPT/HCPCS: 71260; 74177; 82565

== ENCOUNTER → 2018-10-03 | Outpatient (CLI) | payer MEDICARE, OTHER ==
--- NOTE | 2018-10-03 09:27 | RADIOLOGY REPORT (SQ) ---
EXAM DESCRIPTION: CT CHEST WITH; CT ABD/PELVIS WITH IV ONLY COMPLETED DATE/TIME: 10/03/2018 8:32 am REASON FOR STUDY: LUNG CA (C34.32) C34.32 MALIGNANT NEOPLASM OF LOWER LOBE, LEFT BRONCHUS OR GABRIELLA COMPARISON: CT chest 08/04/2016 PET-CT 04/01/2014 CT chest abdomen and pelvis 12/28/2017, 02/18/2018, 04/18/2018, 07/01/2018 CONTRAST TYPE AND DOSE: contrast/concentration: Isovue 300.00 mg/ml; Total Contrast Delivered: 71.0 ml; Total Saline Delivered: 66.0 ml RENAL FUNCTION: Creatinine 1.3 TECHNIQUE: CT scan of the chest performed using helical scanning technique with dynamic intravenous contrast injection. Images reviewed with lung, soft tissue and bone windows. Reconstructed coronal a nd sagittal MPR images reviewed. All images stored on PACS. CT scan of the abdomen and pelvis performed with intravenous and without oral contrastusing helical s karina technique with dynamic intravenous contrast injection. Images reviewed with lung, soft tissu e and bone windows. Reconstructed coronal and sagittal MPR images reviewed. Delayed images for eval uation of the urinary system also acquired and evaluated. All images stored on PACS. All CT scanners at this facility use dose modulation, iterative reconstruction, and/or weight based d osing when appropriate to reduce radiation dose to as low as reasonably achievable (ALARA). [facility]: Dose Right [facility]: CareDose [facility]: Dose Right [facility]: Teradose 4D [facility]: [employer] RADIATION DOSE: CT Rad equipment meets quality standard of care and radiation dose reduction techniq ues were employed. CTDIvol: 4.5 - 7.0 mGy. DLP: 796 mGy-cm. . LIMITATIONS: None. FINDINGS: CHEST: LUNGS AND PLEURA: There are no new pulmonary findings worrisome for malignancy. Multiple stable find ings as follows: 1.4 cm spiculated right middle lobe nodule unchanged from multiple previous studies. Persistent increased interstitial markings in the right middle lobe Post wedge resection with bandlike scarring in the medial right upper lobe and superior segment left lower lobe HILAR AND MEDIASTINAL STRUCTURES: No identified masses or abnormal nodes. HEART AND VASCULAR STRUCTURES: No aneurysm or dissection. No central pulmonary emboli. No pericardi al effusion. Calcified coronary arteries HARDWARE: Left permanent central line tip superior vena cava THYROID AND OTHER SOFT TISSUES: No masses. No adenopathy. BONES: No significant finding. OTHER: No other significant finding. ABDOMEN AND PELVIS: LIVER: Normal size. No masses. No dilated ducts. SPLEEN: Normal size. No focal lesions. PANCREAS: No masses. No significant calcifications. No adjacent inflammation or peripancreatic fluid collections. Pancreatic duct not dilated. GALLBLADDER: Gallstones. No inflammatory changes to suggest cholecystitis. ADRENAL GLANDS: No significant masses or asymmetry. RIGHT KIDNEY AND URETER: No solid masses. Tiny subcentimeter cysts in the right mid and lower pole k idney. Old wedge resection defect, right lower pole kidney area No significant calcification. No hyd ronephrosis or hydroureter. LEFT KIDNEY AND URETER: Anterior left mid pole kidney 2 cm enhancing solid nodule on axial image 35 w orrisome for small renal cell carcinoma. This is unchanged from 07/11/2018 and 04/18/2018. No signif icant calcification. No hydronephrosis or hydroureter. AORTA AND VESSELS: Heavily calcified abdominal aorta and major visceral branches without abdominal ao rtic aneurysm RETROPERITONEUM: No retroperitoneal adenopathy, hemorrhage or masses. BOWEL AND PERITONEAL CAVITY: No oral contrast. No CT evidence of bowel obstruction or free intraperi toneal air or fluid. Patient has a left lower quadrant inguinal hernia containing a short segment of nonobstructed distal descending colon. Colonic diverticula without CT signs of acute diverticulitis . APPENDIX: Normal. ABDOMINAL WALL: Left lower quadrant hernia containing a short segment of nonobstructed distal descend ing colon on axial images 56-61 PELVIS: No mass or free fluid. Normal bladder. Post hysterectomy. BONES: No significant or acute findings. OTHER: No other significant finding. IMPRESSION: Stable appearance of the chest abdomen pelvis. Stable post therapeutic changes in the chest, 2 cm left midpole renal cortical mass. TECHNICAL DOCUMENTATION: JOB ID: [id number] Quality ID # 436: Final reports with documentation of one or more dose reduction techniques (e.g., Au tomated exposure control, adjustment of the mA and/or kV according to patient size, use of iterative reconstruction technique) 2010 [employer]- All Rights Reserved Reading location - IP/workstation name: [email or web address] [id number]
== END ==
LOC: RAD 08:03
PROVIDERS: ATTEND Internal Medicine
DX: C34.32 Malignant neoplasm of lower lobe, left bronchus or lung (principal); K57.30 Diverticulosis of large intestine without perforation or abscess without bleeding; K40.90 Unilateral inguinal hernia, without obstruction or gangrene, not specified as recurrent; N28.89 Other specified disorders of kidney and ureter
CPT/HCPCS: 71260; 74177; 82565

== ENCOUNTER → 2019-01-03 | Outpatient (CLI) | payer MEDICARE, OTHER ==
--- NOTE | 2019-01-03 10:51 | RADIOLOGY REPORT (SQ) ---
EXAM DESCRIPTION: CT CHEST WITH COMPLETED DATE/TIME: 01/03/2019 8:58 am REASON FOR STUDY: LUNG CA (C34.32) C34.32 MALIGNANT NEOPLASM OF LOWER LOBE, LEFT BRONCHUS OR GABRIELLA COMPARISON: 10/03/2018 TECHNIQUE: CT scan of the chest performed using helical scanning technique with dynamic intravenous contrast injection. Images reviewed with lung, soft tissue and bone windows. Reconstructed coronal and sagittal MPR and MIP images reviewed. All images stored on PACS. All CT scanners at this facility use dose modulation, iterative reconstruction, and/or weight based d osing when appropriate to reduce radiation dose to as low as reasonably achievable (ALARA). [facility]: Dose Right [facility]: CareDose [facility]: Dose Right [facility]: Teradose 4D [facility]: [employer] CONTRAST TYPE AND DOSE: 74 mL Omnipaque 300- low osmolar. RENAL FUNCTION: Creatinine 1.3 RADIATION DOSE: . LIMITATIONS: None. FINDINGS: LUNGS AND PLEURA: Spiculated right upper lobe lung nodule is stable, measuring 14.8 mm. G round-glass changes are present in the medial aspect of the lingula. There a 2 mm nodule in the left lung posteriorly on image 46. This is stable. There is 3 mm nodule in the left lung anterolaterall y on image 45. This is stable. There are ground-glass changes in the posterior aspect of the left u pper lobe with minimal associated nodularity. This is stable. There is a stable 10 mm nodule in the left lower lobe medially on image 83. HILAR AND MEDIASTINAL STRUCTURES: No identified masses or abnormal nodes. HEART AND VASCULAR STRUCTURES: No aneurysm or dissection. No central pulmonary emboli. No pericardi al effusion. HARDWARE: None in the chest. UPPER ABDOMEN: See separate report of the CT of the abdomen. THYROID AND OTHER SOFT TISSUES: No masses. No adenopathy. BONES: No significant finding. OTHER: No other significant finding. IMPRESSION: There are stable findings in the chest as described. No interval change since 10/03/2018. TECHNICAL DOCUMENTATION: JOB ID: [id number] Quality ID # 436: Final reports with documentation of one or more dose reduction techniques (e.g., Au tomated exposure control, adjustment of the mA and/or kV according to patient size, use of iterative reconstruction technique) 2010 [employer]- All Rights Reserved Reading location - IP/workstation name: [email or web address]
--- NOTE | 2019-01-03 11:22 | RADIOLOGY REPORT (SQ) ---
EXAM DESCRIPTION: CT ABD/PELVIS WITH IV ONLY COMPLETED DATE/TIME: 01/03/2019 8:58 am REASON FOR STUDY: LUNG CA (C34.32) C34.32 MALIGNANT NEOPLASM OF LOWER LOBE, LEFT BRONCHUS OR GABRIELLA COMPARISON: 10/03/2018 TECHNIQUE: CT scan of the abdomen and pelvis performed using helical scanning technique with dynamic intravenous contrast injection. No oral contrast. Images reviewed with lung, soft tissue, and bone windows. Reconstructed coronal and sagittal MPR images reviewed. Delayed images for evaluation of the urinary system also acquired. All images stored on PACS. All CT scanners at this facility use dose modulation, iterative reconstruction, and/or weight based d osing when appropriate to reduce radiation dose to as low as reasonably achievable (ALARA). [facility]: Dose Right [facility]: CareDose [facility]: Dose Right [facility]: Teradose 4D [facility]: [employer] CONTRAST TYPE AND DOSE: contrast/concentration: Isovue 300.00 mg/ml; Total Contrast Delivered: 74.0 ml; Total Saline Delivered: 67.0 ml RENAL FUNCTION: Creatinine 1.3 RADIATION DOSE: CT Rad equipment meets quality standard of care and radiation dose reduction techniq ues were employed. CTDIvol: 4.8 - 7.5 mGy. DLP: 857 mGy-cm.. LIMITATIONS: None. FINDINGS: LOWER CHEST: See separate report of the CT of the chest. LIVER: Normal size. No masses. No dilated ducts. SPLEEN: Normal size. No focal lesions. PANCREAS: No masses. No significant calcifications. No adjacent inflammation or peripancreatic fluid collections. Pancreatic duct not dilated. GALLBLADDER: Cholelithiasis. ADRENAL GLANDS: No significant masses or asymmetry. RIGHT KIDNEY AND URETER: No solid masses. Partial nephrectomy involving the lower pole. No signifi cant calcifications. No hydronephrosis or hydroureter. LEFT KIDNEY AND URETER: Anterior cortical mass measures 25 mm. This appears to be slightly larger th an on the prior study. No significant calcifications. No hydronephrosis or hydroureter. AORTA AND VESSELS: No aneurysm. No dissection. Renal arteries, SMA, celiac without stenosis. RETROPERITONEUM: No retroperitoneal adenopathy, hemorrhage or masses. BOWEL AND PERITONEAL CAVITY: Descending and sigmoid diverticulosis with no associated inflammation. Not all obvious bowel mass. APPENDIX: Not identified. PELVIS: No mass. No free fluid. Normal bladder. ABDOMINAL WALL: No masses. No hernias. BONES: Lower lumbar degenerative disc changes. OTHER: No other significant finding. IMPRESSION: The pre-existing left renal cortical mass is slightly larger than on the prior study. C holelithiasis. Diverticulosis coli. Lumbar degenerative changes. TECHNICAL DOCUMENTATION: JOB ID: [id number] Quality ID # 436: Final reports with documentation of one or more dose reduction techniques (e.g., Au tomated exposure control, adjustment of the mA and/or kV according to patient size, use of iterative reconstruction technique) 2010 [employer]- All Rights Reserved Reading location - IP/workstation name: [email or web address]
== END ==
LOC: RAD 08:09
PROVIDERS: ATTEND Internal Medicine
DX: C34.32 Malignant neoplasm of lower lobe, left bronchus or lung (principal); K57.30 Diverticulosis of large intestine without perforation or abscess without bleeding
CPT/HCPCS: 71260; 74177; 82565

== ENCOUNTER → 2019-01-30 | Outpatient (CLI) | payer MEDICARE, OTHER ==
--- NOTE | 2019-01-30 09:39 | WOMENS IMAGING REPORT ---
EXAM DESCRIPTION: BILAT SCREENING MAMMO W/CAD COMPLETED DATE/TIME: 01/30/2019 9:22 am REASON FOR STUDY: Z12.31 ROUTINE BILATERAL SCREENING Z12.31 ENCNTR SCREEN MAMMOGRAM FOR MALIGNANT N EOPLASM OF ESTEFANÍA COMPARISON: Multiple since 2008 TECHNIQUE: Standard craniocaudal and mediolateral oblique views of each breast recorded using [employer] acquisition. LIMITATIONS: None. FINDINGS: Findings present which are benign by mammographic criteria. No suspicious masses, calcifi cations or architectural distortion. Pertinent benign findings: Stable right breast calcifications and intramammary lymph nodes Read with the assistance of CAD. .[facility] - R2 [employer] Version 9.2 Benign mammographic findings may include one or more of the following: Smooth masses, popcorn/rim/co arse calcifications, asymmetries, post-procedure changes, and lesions with long-standing stability. IMPRESSION: BENIGN MAMMOGRAPHIC FINDINGS. BIRADS 2 BREAST DENSITY: b. There are scattered areas of fibroglandular density. BIRAD: 2 BENIGN FINDING(S) RECOMMENDATION: ROUTINE SCREENING COMMENT: The patient has been notified of the results by letter per MQSA requirements. Additional no tification policies are in place for contacting patient with suspicious or incomplete findings. Quality ID #225: The [employer] recommends an annual screening mammogram for women aged 40 years or over. This facility utilizes a reminder system to ensure that all patients receive reminder letters, and/or direct phone calls for appointments. This includes reminders for routine scr eening mammograms, diagnostic mammograms, or other Breast Imaging Interventions when appropriate. Th is patient will be placed in the appropriate reminder system. TECHNICAL DOCUMENTATION: FINDING NUMBER: (1) ASSESSMENT: (1) JOB ID: [id number] [employer]- All Rights Reserved Reading location - IP/workstation name: [email or web address]
== END ==
LOC: WI 09:00
PROVIDERS: ATTEND Family Medicine
DX: Z12.31 Encounter for screening mammogram for malignant neoplasm of breast (principal)
CPT/HCPCS: 77067

== ENCOUNTER → 2019-04-04 | Outpatient (CLI) | payer MEDICARE, OTHER ==
--- NOTE | 2019-04-04 09:41 | RADIOLOGY REPORT (SQ) ---
EXAM DESCRIPTION: CT CHEST WITH; CT ABD/PELVIS WITH IV ONLY COMPLETED DATE/TIME: 04/04/2019 9:19 am REASON FOR STUDY: LUNG CA C34.32 MALIGNANT NEOPLASM OF LOWER LOBE, LEFT BRONCHUS OR GABRIELLA COMPARISON: CT chest abdomen pelvis 10/15/2018, 10/13/2018, 07/11/2018 CONTRAST TYPE AND DOSE: contrast/concentration: Isovue 300.00 mg/ml; Total Contrast Delivered: 77.0 ml; Total Saline Delivered: 67.0 ml RENAL FUNCTION: Creatinine 1.2 TECHNIQUE: CT scan of the chest performed using helical scanning technique with dynamic intravenous contrast injection. Images reviewed with lung, soft tissue and bone windows. Reconstructed coronal a nd sagittal MPR images reviewed. All images stored on PACS. CT scan of the abdomen and pelvis performed with intravenous and without oral contrastusing helical s karina technique with dynamic intravenous contrast injection. Images reviewed with lung, soft tissu e and bone windows. Reconstructed coronal and sagittal MPR images reviewed. Delayed images for eval uation of the urinary system also acquired and evaluated. All images stored on PACS. All CT scanners at this facility use dose modulation, iterative reconstruction, and/or weight based d osing when appropriate to reduce radiation dose to as low as reasonably achievable (ALARA). [facility]: Dose Right [facility]: CareDose [facility]: Dose Right [facility]: Teradose 4D [facility]: [employer] RADIATION DOSE: CT Rad equipment meets quality standard of care and radiation dose reduction techniq ues were employed. CTDIvol: 5.2 - 7.9 mGy. DLP: 922 mGy-cm. . LIMITATIONS: None. FINDINGS: CHEST: LUNGS AND PLEURA: No new findings in the lung parenchyma. Chronic stable post therapeutic findings are present, with wedge resection costa and bandlike scarr ing in the medial aspect right upper lobe and superior segment right lower lobe. Chronic increased interstitial markings anterior right middle lobe. 1.4 cm spiculated nodule in the right middle lobe is unchanged from multiple previous studies, best shown on axial image 68, likely s car tissue. No pleural effusion. No pneumothorax. No acute infiltrates. HILAR AND MEDIASTINAL STRUCTURES: No identified masses or abnormal nodes. HEART AND VASCULAR STRUCTURES: No aneurysm or dissection. No central pulmonary emboli. No pericardi al effusion. HARDWARE: Left-sided permanent central line tip superior vena cava THYROID AND OTHER SOFT TISSUES: No masses. No adenopathy. BONES: No significant finding. OTHER: No other significant finding. ABDOMEN AND PELVIS: LIVER: Normal size. No masses. No dilated ducts. SPLEEN: Normal size. No focal lesions. PANCREAS: No masses. No significant calcifications. No adjacent inflammation or peripancreatic fluid collections. Pancreatic duct not dilated. GALLBLADDER: Contracted around calcified stones. No pericholecystic fluid ADRENAL GLANDS: No significant masses or asymmetry. RIGHT KIDNEY AND URETER: Post right lower pole renal wedge resection. Tiny subcentimeter mid and low er pole cortical cysts are present. No solid mass. No right hydronephrosis or hydroureter. LEFT KIDNEY AND URETER: Left lower pole solid parenchymal mass 2.5 cm in size worrisome for renal yang l neoplasm, unchanged from 01/13/2019 and 10/13/2018. This measured 2.3 cm in diameter on 07/11/2018. Remainder of the left kidney demonstrates the calcification at the left renal pelvis 6 mm in length e ither a vascular calcification or collecting system stone. 1 cm left midpole renal cortical cyst. AORTA AND VESSELS: Very heavily calcified abdominal aorta and origins of the visceral vessels. 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 RETROPERITONEUM: No retroperitoneal adenopathy, hemorrhage or masses. BOWEL AND PERITONEAL CAVITY: No free intraperitoneal air or fluid. No CT signs of bowel obstruction. There is a left inguinal hernia containing a nonobstructed loop of the distal descending colon. APPENDIX: Normal. ABDOMINAL WALL: Left inguinal hernia containing nonobstructed distal descending colon. Colonic diver ticulosis without CT signs of acute diverticulitis PELVIS: No mass or free fluid. Normal bladder. The post hysterectomy BONES: No significant or acute findings. OTHER: No other significant finding. IMPRESSION: Stable appearance of the chest 2.5 cm solid left lower pole renal mass, stable NORMAL CT OF THE ABDOMEN AND PELVIS WITH ORAL AND INTRAVENOUS CONTRAST. TECHNICAL DOCUMENTATION: JOB ID: [id number] Quality ID # 436: Final reports with documentation of one or more dose reduction techniques (e.g., Au tomated exposure control, adjustment of the mA and/or kV according to patient size, use of iterative reconstruction technique) 2010 [employer]- All Rights Reserved Reading location - IP/workstation name: [email or web address]
== END ==
LOC: RAD 08:42
PROVIDERS: ATTEND Physician Assistant Medical
DX: C34.32 Malignant neoplasm of lower lobe, left bronchus or lung (principal); K40.90 Unilateral inguinal hernia, without obstruction or gangrene, not specified as recurrent; K57.30 Diverticulosis of large intestine without perforation or abscess without bleeding; N28.89 Other specified disorders of kidney and ureter
CPT/HCPCS: 71260; 74177; 82565

== ENCOUNTER → 2019-06-19 | Outpatient (CLI) | payer MEDICARE, OTHER ==
--- NOTE | 2019-06-19 11:39 | RADIOLOGY REPORT (SQ) ---
EXAM DESCRIPTION: CT CHEST WITH; CT ABD/PELVIS WITH IV ONLY COMPLETED DATE/TIME: 06/19/2019 9:02 am; 06/19/2019 9:00 am REASON FOR STUDY: LUNG CA (C34.32) C34.32 MALIGNANT NEOPLASM OF LOWER LOBE, LEFT BRONCHUS OR GABRIELLA COMPARISON: CT CHEST ABDOMEN PELVIS 09/29/2016, 10/03/2018, 01/13/2019, 04/14/2019 CONTRAST TYPE AND DOSE: contrast/concentration: Isovue 300.00 mg/ml; Total Contrast Delivered: 89.0 ml; Total Saline Delivered: 70.0 ml RENAL FUNCTION: Creatinine 1.2 TECHNIQUE: CT scan of the chest performed using helical scanning technique with dynamic intravenous contrast injection. Images reviewed with lung, soft tissue and bone windows. Reconstructed coronal a nd sagittal MPR images reviewed. All images stored on PACS. CT scan of the abdomen and pelvis performed with intravenous and without oral contrastusing helical s karina technique with dynamic intravenous contrast injection. Images reviewed with lung, soft tissu e and bone windows. Reconstructed coronal and sagittal MPR images reviewed. Delayed images for eval uation of the urinary system also acquired and evaluated. All images stored on PACS. All CT scanners at this facility use dose modulation, iterative reconstruction, and/or weight based d osing when appropriate to reduce radiation dose to as low as reasonably achievable (ALARA). [facility]: Dose Right [facility]: CareDose [facility]: Dose Right [facility]: Teradose 4D [facility]: [employer] RADIATION DOSE: CT Rad equipment meets quality standard of care and radiation dose reduction techniq ues were employed. CTDIvol: 5.8 - 9.4 mGy. DLP: 1047 mGy-cm. . LIMITATIONS: None. FINDINGS: CHEST: LUNGS AND PLEURA: There is consolidation in the medial aspect right upper lobe, just above the minor fissure anteriorly. This is best shown on coronal image 24 and axial images 49-56. Interstitial inc reased markings opinions region on prior CT exams, however this appears much more solid on today's st udy. Differential is tumor recurrence versus fibrosis from radiation versus pneumonia. Remainder of the lungs are stable over the series of exams, with old surgical costa in the right me dial lung apex, left lower lobe along the major fissure, 14 mm spiculated right middle lobe nodule un changed over several years, 5 mm non calcified lingular granuloma unchanged. No pleural effusions. No pneumothorax. HILAR AND MEDIASTINAL STRUCTURES: No identified masses or abnormal nodes. HEART AND VASCULAR STRUCTURES: No aneurysm or dissection. No central pulmonary emboli. No pericardi al effusion. Calcified aortic valve and coronary arteries HARDWARE: Left-sided permanent central line tip superior vena cava THYROID AND OTHER SOFT TISSUES: No masses. No adenopathy. BONES: No significant finding. OTHER: No other significant finding. ABDOMEN AND PELVIS: LIVER: Normal size. No masses. No dilated ducts. SPLEEN: Normal size. No focal lesions. PANCREAS: No masses. No significant calcifications. No adjacent inflammation or peripancreatic fluid collections. Pancreatic duct not dilated. GALLBLADDER: Multiple calcified stones in the gallbladder. No gallbladder wall thickening or pericho lecystic fluid ADRENAL GLANDS: No significant masses or asymmetry. RIGHT KIDNEY AND URETER: No solid masses. Multiple subcentimeter renal cortical cysts. No significa nt calcification. No hydronephrosis or hydroureter. LEFT KIDNEY AND URETER: Stable left lower pole renal solid mass, 2.6 x 2.5 cm in size on axial image 29. Post right lower pole partial nephrectomy No significant calcification. No hydronephrosis or hyd roureter. AORTA AND VESSELS: No aneurysm. No dissection. Tight stenosis, proximal SMA best shown on coronal re construction image 47/100. Suspect high-grade left renal artery stenosis on coronal images 52-54. RETROPERITONEUM: No retroperitoneal adenopathy, hemorrhage or masses. BOWEL AND PERITONEAL CAVITY: No CT evidence of bowel obstruction or free intraperitoneal air or fluid . A left lower quadrant hernia is present containing nonobstructed distal descending/ proximal sigmo id colon on coronal images 37-42, and axial image 54. Colonic diverticulosis is present without CT s igns of acute diverticulitis. No free intraperitoneal air or fluid. APPENDIX: Not identified ABDOMINAL WALL: Left lower quadrant hernia containing a nonobstructed distal descending colon/ proxim al sigmoid colon. PELVIS: No mass or free fluid. Normal bladder. Post hysterectomy BONES: No significant or acute findings. OTHER: No other significant finding. IMPRESSION: Dense consolidation is now present in an area of previous interstitial fibrosis along th e anterior aspect right upper lobe. Differential is post radiation fibrosis versus recurrent tumor v ersus pneumonia. 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 TECHNICAL DOCUMENTATION: JOB ID: [id number] Quality ID # 436: Final reports with documentation of one or more dose reduction techniques (e.g., Au tomated exposure control, adjustment of the mA and/or kV according to patient size, use of iterative reconstruction technique) 2010 [employer]- All Rights Reserved Reading location - IP/workstation name: [email or web address]
== END ==
LOC: RAD 08:19
PROVIDERS: ATTEND Physician Assistant Medical
DX: C34.32 Malignant neoplasm of lower lobe, left bronchus or lung (principal)
CPT/HCPCS: 71260; 74177; 82565

== ENCOUNTER → 2019-07-16 | Outpatient (CLI) | payer MEDICARE, OTHER ==
--- NOTE | 2019-07-17 11:18 | RADIOLOGY REPORT (SQ) ---
EXAM DESCRIPTION: PET CT SKULL/THIGH COMPLETED DATE/TIME: 07/16/2019 8:16 pm REASON FOR STUDY: (C34.32)MALIGNANT NEOPLASM OF LOWER LOBE, LEFT BRONCHUS OR LUNG C34.32 MALIGNANT NEOPLASM OF LOWER LOBE, LEFT BRONCHUS OR GABRIELLA COMPARISON: PET scan dated 04/01/2014. CT chest abdomen and pelvis dated 06/19/2019, 04/04/2019, and 01/03. RADIONUCLIDE AND DOSE: 10 mCi F18 FDG The route of agent administration: Intravenous FASTING BLOOD SUGAR: 102 mg/dl CONTRAST TYPE AND DOSE: No CT contrast given. TECHNIQUE: Blood glucose level was verified. Above dose of FDG was injected intravenously. 2-D seg mented attenuation correction images were obtained from the base of the skull to the midthighs. Nonc ontrast CT images were obtained for attenuation correction and fusion with emission images. CT image s were performed without oral or intravenous contrast and are not sensitive for parenchymal lesions. A series of overlapping emission PET images were obtained. Images reviewed and manipulated at [facility] work station by the radiologist. Images stored on PACS. LIMITATIONS: None. FINDINGS: HEAD AND NECK: Stable 1 cm nodule in the left parotid gland. Mean SUV 7.84. CHEST: The focal area of consolidation in the anterior right lung on recent CT scan has improved. Mi ld increased activity posteriorly with mean SUV 3.84. Spiculated nodule in the right lung remain sta ble. Mean SUV 1.04. Surgical changes and chronic scarring. ABDOMEN AND PELVIS: Stable soft tissue mass in the left kidney. Mean SUV 1.48. There are several fo christopher areas of activity in the rectosigmoid extending inferiorly with mean SUV values of 6.43, 4.8, and at the level of the anus 5.29. Expected physiologic activity is present in the genitourinary system and bowel. PROXIMAL LOWER EXTREMITIES: No areas of abnormal metabolic activity in the soft tissues of the lower extremities. BONES: No abnormal metabolic activity in the visualized skeleton. ADDITIONAL CT FINDINGS: Gallstones. Colonic diverticulosis. Colonic diverticulosis. Left lower kishor drant abdominal wall hernia without bowel obstruction. No additional significant findings on the non contrast CT images. OTHER: Background blood pool activity mean SUV 2.02. Background liver activity mean SUV 2.52. No oth er significant findings. IMPRESSION: 1. FOCAL AREA OF CONSOLIDATION IN THE ANTERIOR RIGHT LUNG HAS IMPROVED COMPARED TO THE PREVIOUS CT SC AN. SUV VALUE IS SLIGHTLY ELEVATED AT 3.84. HOWEVER, SINCE THIS FINDING HAS IMPROVED ON CT, THIS TX OBABLY REPRESENTS AN AREA OF PNEUMONITIS/INFLAMMATION. RECOMMEND CONTINUED FOLLOW-UP WITH CT AND PET SURVEILLANCE. THE SPICULATED NODULE IN THE RIGHT LUNG REMAINS STABLE WITH NO ABNORMAL ACTIVITY. OT HER CHRONIC CHANGES IN THE LUNGS ARE ALSO STABLE. 2. STABLE MASS IN THE ANTERIOR LEFT KIDNEY. NO ABNORMAL ACTIVITY. 3. STABLE NODULE IN THE LEFT PAROTID GLAND WITH CURRENT MEAN SUV 7.84. THIS HAS BEEN PRESENT ON PRIO R PET SCANS DATING BACK TO 2011. 4. SEVERAL FOCAL AREAS OF ACTIVITY IN THE RECTOSIGMOID EXTENDING TO THE ANUS. THIS COULD REPRESENT E XCRETED BOWEL ACTIVITY WITH ADHERENT AREAS OF STOOL. CANNOT ENTIRELY EXCLUDE THE POSSIBILITY OF UNDE RLYING POLYP OR SOFT TISSUE MASS. SHOULD CONSIDER FOLLOW-UP WITH ENDOSCOPY, AT LEAST SIGMOIDOSCOPY, TO EVALUATE FOR ANY MUCOSAL MASSES. TECHNICAL DOCUMENTATION: JOB ID: [id number] [employer]- All Rights Reserved Reading location - IP/workstation name: [email or web address]
== END ==
LOC: RAD 14:38
PROVIDERS: ATTEND Nurse Practitioner Family
DX: C34.32 Malignant neoplasm of lower lobe, left bronchus or lung (principal)
CPT/HCPCS: 78815; A9552

== ENCOUNTER → 2019-07-24 | Outpatient (CLI) | payer MEDICARE, OTHER ==
--- NOTE | 2019-07-24 09:53 | RADIOLOGY REPORT (SQ) ---
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 Contrasted imaging performed helical scanning technique and dynamic intravenous contrast injection. Images reviewed with lung, soft tissue, and bone windows. Reconstructed coronal a nd sagittal MPR images reviewed. Delayed images for evaluation of the urinary system also acquired. A ll images stored on PACS. All CT scanners at this facility use dose modulation, iterative reconstruction, and/or weight based d osing when appropriate to reduce radiation dose to as low as reasonably achievable (ALARA). [facility]: Dose Right [facility]: CareDose [facility]: Dose Right [facility]: Teradose 4D [facility]: [employer] CONTRAST TYPE AND DOSE: 77 mL Omnipaque 300- low osmolar. RENAL FUNCTION: Creatinine 1.2 milligrams/deciliter LIMITATIONS: None. FINDINGS: NON-CONTRASTED IMAGING: There is no CT evidence of hepatic steatosis. There are no renal, ureteral or urinary bladder calculi. POST-CONTRASTED IMAGING: LOWER CHEST: The subpleural nodules in the right lower lobe (image 3 of series 5), lingula (image 1 o f series 5), and left lower lobe (images 1, 8 and 10 of series 5) are stable from 06/19/2019. There i s no basilar consolidation or pleural effusion. There is atherosclerotic calcification of the mitral annulus and aortic valve leaflets. There is no cardiomegaly or pericardial effusion. LIVER: The liver morphology is non cirrhotic. There is no hepatic mass. SPLEEN: There is no splenomegaly. PANCREAS: No abnormality of the pancreas. GALLBLADDER: Cholelithiasis without associated gallbladder wall thickening, pericholecystic fluid or biliary ductal dilatation. ADRENAL GLANDS: Stable 10 mm right adrenal nodule that is favored to represent a lipid rich adenoma b ased on its internal attenuation. RIGHT KIDNEY AND URETER: Chronic cortical defect in the lateral aspect of the lower pole. There are a number of subcentimeter cortical-based hypodense lesions scattered throughout the upper lower poles of the kidney that are too small to characterize. There is no solid renal mass, hydronephrosis or h ydroureter. LEFT KIDNEY AND URETER: The solid exophytic mass that arises from the anterior cortex of the lower po le is unchanged in size and it measures approximately 2.8 x 2.8 cm. The renal veins are patent. The subcentimeter hypodense lesions adjacent to the mass and in the upper poles are too small to charact erize. There is no hydronephrosis or hydroureter. AORTA AND VESSELS: Atherosclerotic calcification of the abdominal aorta and iliac vessels without ane urysmal dilate station or dissection. There are calcified atheromatous plaques at the origin of the SMA and renal arteries that rib results and luminal stenosis. RETROPERITONEUM: No retroperitoneal adenopathy, hemorrhage or mass. BOWEL AND PERITONEAL CAVITY: Colonic diverticulosis without diverticulitis. There is no evidence of obstruction, bowel wall thickening, or pericolonic/ perienteric inflammation. There is no mesenteric adenopathy or free intraperitoneal fluid. There is no mesenteric or peritoneal mass. APPENDIX: Normal. PELVIS: The uterus is surgically absent. The urinary bladder is partially distended and normal in ap pearance. There is a hernia sac in the left inguinal region that containsa nonobstructed loops of d escending colon. ABDOMINAL WALL: As above. BONES: No acute findings. OTHER: No other finding. IMPRESSION: 1. Solid 2.8 x 2.8 cm exophytic mass in the lower pole of the left kidney that is favore d to represent a renal cell carcinoma. The renal veins are patent and there is no evidence of metast atic spread. 2. Cholelithiasis without acute cholecystitis. 3. Diverticulosis without acute diverticulitis. 4. Left inguinal hernia that contains a nonobstructive loop of descending colon. 5. Other findings as detailed above. TECHNICAL DOCUMENTATION: JOB ID: [id number] Quality ID # 436: Final reports with documentation of one or more dose reduction techniques (e.g., Au tomated exposure control, adjustment of the mA and/or kV according to patient size, use of iterative reconstruction technique) 2010 [employer]- All Rights Reserved Reading location - IP/workstation name: [email or web address]
== END ==
LOC: RAD 07:36
PROVIDERS: ATTEND Internal Medicine
DX: C64.9 Malignant neoplasm of unspecified kidney, except renal pelvis (principal); C34.32 Malignant neoplasm of lower lobe, left bronchus or lung; N18.3 Chronic kidney disease, stage 3 (moderate)
CPT/HCPCS: 74178; 82565

== ENCOUNTER → 2020-01-01 | Outpatient (CLI) | payer MEDICARE, OTHER ==
--- NOTE | 2020-01-01 08:35 | RADIOLOGY REPORT (SQ) ---
EXAM DESCRIPTION: CT CHEST WITH IMAGES COMPLETED DATE/TIME: 01/01/2020 8:14 am REASON FOR STUDY: (C34.32)MALIGNANT NEOPLASM OF LOWER LOBE, LEFT BRONCHUS OR LUNG C34.32 MALIGNANT NEOPLASM OF LOWER LOBE, LEFT BRONCHUS OR GABRIELLA COMPARISON: PET-CT dated 07/16/2019, CT chest dated 06/19/2019 TECHNIQUE: CT scan of the chest performed using helical scanning technique with dynamic intravenous contrast injection. Images reviewed with lung, soft tissue and bone windows. Reconstructed coronal and sagittal MPR and MIP images reviewed. All images stored on PACS. All CT scanners at this facility use dose modulation, iterative reconstruction, and/or weight based d osing when appropriate to reduce radiation dose to as low as reasonably achievable (ALARA). [facility]: Dose Right [facility]: CareDose [facility]: Dose Right [facility]: Teradose 4D [facility]: [employer] CONTRAST TYPE AND DOSE: contrast/concentration: Isovue 300.00 mg/ml; Total Contrast Delivered: 80.0 ml; Total Saline Delivered: 55.0 ml RENAL FUNCTION: Creatinine 1.2 RADIATION DOSE: CT Rad equipment meets quality standard of care and radiation dose reduction techniq ues were employed. CTDIvol: 7.7 mGy. DLP: 323 mGy-cm. . LIMITATIONS: None. FINDINGS: LUNGS AND PLEURA: Stable linear scarring in the medial aspect of the right upper lobe. Pe rsistent consolidation in the anterior aspect of the right upper lobe. Findings are improved when co mpared to 06/19/2019. Changes in the right middle lobe have slightly progressed when compared to 06/28. Small subpleural nodules in the same area are grossly unchanged. There is a stable nodule a djacent to the descending thoracic aorta in the left lower lobe. This measures 11.4 mm in diameter. This is not significantly changed from prior study. Additional 46 mm size nodules in the left lower lobe are unchanged. 1.4 cm spiculated nodule in the right middle lobe is grossly unchanged. No new findings. HILAR AND MEDIASTINAL STRUCTURES: No identified masses or abnormal nodes. HEART AND VASCULAR STRUCTURES: No aneurysm or dissection. No central pulmonary emboli. No pericardi al effusion. HARDWARE: None in the chest. UPPER ABDOMEN: Gallstones are noted. THYROID AND OTHER SOFT TISSUES: No masses. No adenopathy. BONES: No significant finding. OTHER: No other significant finding. IMPRESSION: Focal airspace disease in the medial aspect of the right upper lobe anteriorly has sligh tly increased when compared to recent PET but remains improved when compared to prior CT chest. Nume agustin bilateral pulmonary nodules are unchanged. Spiculated 1.4 cm nodule in the right middle lobe is stable in appearance as well. TECHNICAL DOCUMENTATION: JOB ID: [id number] Quality ID # 436: Final reports with documentation of one or more dose reduction techniques (e.g., Au tomated exposure control, adjustment of the mA and/or kV according to patient size, use of iterative reconstruction technique) 2010 [employer]- All Rights Reserved Reading location - IP/workstation name: [email or web address]
== END ==
LOC: RAD 07:28
PROVIDERS: ATTEND Internal Medicine
DX: C34.92 Malignant neoplasm of unspecified part of left bronchus or lung (principal); K80.80 Other cholelithiasis without obstruction
CPT/HCPCS: 71260; 82565

== ENCOUNTER → 2020-03-07 | Outpatient (CLI) | payer MEDICARE, OTHER ==
--- NOTE | 2020-03-07 09:00 | WOMENS IMAGING REPORT ---
EXAM DESCRIPTION: 3D SCREENING MAMMO BILAT IMAGES COMPLETED DATE/TIME: 03/07/2020 8:37 am REASON FOR STUDY: Z12.31 ENCOUNTER FOR SCREENING MAMMOGRAM FOR MALIGNANT NEOPLASM OF BREAST Z12.31 ENCNTR SCREEN MAMMOGRAM FOR MALIGNANT NEOPLASM OF ESTEFANÍA COMPARISON: Multiple since 2008 EXAM PARAMETERS: Standard craniocaudal and mediolateral oblique views of each breast recorded using digital acquisition and breast tomosynthesis. Read with the assistance of CAD. .[facility] - [employer] Super[employer] Customer Records Division Version 9.2 LIMITATIONS: None. FINDINGS: Findings present which are benign by mammographic criteria. No suspicious masses, calcific ations or architectural distortion. Pertinent benign findings: Benign calcifications. Benign subcentimeter breast mass right upper outer quadrant Benign mammographic findings may include one or more of the following: Smooth masses, popcorn/rim/coa rse calcifications, asymmetries, post-procedure changes, and lesions with long-standing stability. IMPRESSION: BENIGN MAMMOGRAPHIC FINDINGS. BIRADS 2 BREAST DENSITY: a. The breasts are almost entirely fatty. BIRAD: ASSESSMENT: 2 BENIGN FINDING(S) RECOMMENDATION: ROUTINE SCREENING COMMENT: The patient has been notified of the results by letter per SA requirements. Additional no tification policies are in place for contacting patient with suspicious or incomplete findings. Quality ID #225: The [employer] recommends an annual screening mammogram for women aged 40 years or over. This facility utilizes a reminder system to ensure that all patients receive reminder letters, and/or direct phone calls for appointments. This includes reminders for routine scr eening mammograms, diagnostic mammograms, or other Breast Imaging Interventions when appropriate. Th is patient will be placed in the appropriate reminder system. TECHNICAL DOCUMENTATION: FINDING NUMBER: (1) ASSESSMENT: (1) JOB ID: [id number] 2010 [employer]- All Rights Reserved Reading location - IP/workstation name: [email or web address]
== END ==
LOC: WI 08:21
PROVIDERS: ATTEND Family Medicine
DX: Z12.31 Encounter for screening mammogram for malignant neoplasm of breast (principal)
CPT/HCPCS: 77063; 77067

== ENCOUNTER → 2020-04-04 | Outpatient (CLI) | payer MEDICARE, OTHER ==
--- NOTE | 2020-04-04 10:18 | RADIOLOGY REPORT (SQ) ---
EXAM DESCRIPTION: CT ABD/PELVIS WITH IV ONLY; CT CHEST WITH IMAGES COMPLETED DATE/TIME: 04/04/2020 8:52 am REASON FOR STUDY: C34.32 MALIGNANT NEOPLASM OF LOWER LOBE, LEFT BRONCHUS OR LUNG C34.32 MALIGNANT N EOPLASM OF LOWER LOBE, LEFT BRONCHUS OR GABRIELLA RENAL FUNCTION: Creatinine 1.1 TECHNIQUE: CT scan of the chest performed using helical scanning technique with dynamic intravenous contrast injection. Images reviewed with lung, soft tissue and bone windows. Reconstructed coronal a nd sagittal MPR images reviewed. All images stored on PACS. CT scan of the abdomen and pelvis performed with intravenous and without oral contrastusing helical s karina technique with dynamic intravenous contrast injection. Images reviewed with lung, soft tissu e and bone windows. Reconstructed coronal and sagittal MPR images reviewed. Delayed images for eval uation of the urinary system also acquired and evaluated. All images stored on PACS. All CT scanners at this facility use dose modulation, iterative reconstruction, and/or weight based d osing when appropriate to reduce radiation dose to as low as reasonably achievable (ALARA). [facility]: Dose Right [facility]: CareDose [facility]: Dose Right [facility]: Teradose 4D [facility]: [employer] RADIATION DOSE: CT Rad equipment meets quality standard of care and radiation dose reduction techniq ues were employed. CTDIvol: 5.0 - 7.8 mGy. DLP: 886 mGy-cm. . LIMITATIONS: None. FINDINGS: CHEST: LUNGS AND PLEURA: Re- demonstration of right middle lobe increased interstitial markings/scarring not able for increase in size of multiple scattered nodular components. A 16 x 11 x 12 mm spiculated no dule within the right middle lobe appears stable in size and configuration when measured in similar p lanes. Other scattered pulmonary nodules, ground-glass opacities, and scarring are unchanged in the s tudy interval. Stable background of centrilobular emphysematous changes. HILAR AND MEDIASTINAL STRUCTURES: No identified masses or abnormal nodes. HEART AND VASCULAR STRUCTURES: No aneurysm or dissection. No central pulmonary emboli. No pericardi al effusion. HARDWARE: None. THYROID AND OTHER SOFT TISSUES: No masses. No adenopathy. BONES: No significant finding. OTHER: No other significant finding. ABDOMEN AND PELVIS: LIVER: Normal size. No masses. No dilated ducts. SPLEEN: Normal size. No focal lesions. PANCREAS: No masses. Stable parenchymal calcifications. No adjacent inflammation or peripancreatic f luid collections. Pancreatic duct not dilated. GALLBLADDER: Gallstones. No inflammatory changes to suggest cholecystitis. ADRENAL GLANDS: No significant masses or asymmetry. RIGHT KIDNEY AND URETER: Stable postsurgical changes. No solid masses. Scattered rounded hypoattenu ating foci too small to definitively characterize, but likely on the basis of tiny renal cysts. No h ydronephrosis or hydroureter. LEFT KIDNEY AND URETER: Stable appearance of a 3.0 x 2.8 x 2.6 cm solid mass within the inferior pole . . No hydronephrosis or hydroureter. AORTA AND VESSELS: Calcified and noncalcified atherosclerotic plaque to include the origins of the ma pieter visceral branches. Focal ectasia of the infrarenal abdominal aorta. RETROPERITONEUM: No retroperitoneal adenopathy, hemorrhage or masses. BOWEL AND PERITONEAL CAVITY: Scattered colonic diverticula without focal inflammatory changes. No ma ss. No obstruction. APPENDIX: Not visualized. ABDOMINAL WALL: Stable left lower quadrant hernia containing a loop of sigmoid colon without obstruct ion or evidence of incarceration. PELVIS: No mass or free fluid. Normal bladder. BONES: No significant or acute findings. OTHER: No other significant finding. IMPRESSION: Re- demonstration of right middle lobe increased interstitial markings notable for the a ppearance of increased size of multiple associated nodular components. This would be an atypical tyson earance for radiation induced lung disease; as such, consideration should be made for possible recurr ent neoplasm. Stable size and imaging characteristics of a right middle lobe spiculated mass. Stable appearance of the abdomen and pelvis. Status post partial nephrectomy on the right. Stable 3 .0 x 2.8 x 2.6 cm solid mass within the inferior pole of the left kidney. Diverticulosis without acut e inflammatory changes. Left lower quadrant hernia containing a loop of sigmoid colon without eviden ce of obstruction. Diffuse calcified and noncalcified plaque with focal ectasia of the infrarenal ab dominal aorta. TECHNICAL DOCUMENTATION: JOB ID: [id number] Quality ID # 436: Final reports with documentation of one or more dose reduction techniques (e.g., Au tomated exposure control, adjustment of the mA and/or kV according to patient size, use of iterative reconstruction technique) 2010 [employer]- All Rights Reserved COMPARISON: 01/01/2020 and 07/22/2019 CONTRAST TYPE AND DOSE: contrast/concentration: Isovue 300.00 mmol/ml; Total Contrast Delivered: 74. 0 ml; Total Saline Delivered: 67.0 ml Reading location - IP/workstation name: [email or web address]
== END ==
LOC: RAD 08:17
PROVIDERS: ATTEND Internal Medicine
DX: C34.32 Malignant neoplasm of lower lobe, left bronchus or lung (principal); N28.89 Other specified disorders of kidney and ureter; K57.30 Diverticulosis of large intestine without perforation or abscess without bleeding; K40.90 Unilateral inguinal hernia, without obstruction or gangrene, not specified as recurrent
CPT/HCPCS: 71260; 74177; 82565

== ENCOUNTER → 2020-04-16 | Outpatient (CLI) | payer MEDICARE, OTHER ==
--- NOTE | 2020-04-17 10:17 | RADIOLOGY REPORT (SQ) ---
EXAM DESCRIPTION: PET CT SKULL/THIGH IMAGES COMPLETED DATE/TIME: 04/16/2020 2:08 pm REASON FOR STUDY: C34.32 MALIGNANT NEOPLASM OF LOWER LOBE, LEFT BRONCHUS OR LUNG C34.32 MALIGNANT N EOPLASM OF LOWER LOBE, LEFT BRONCHUS OR GABRIELLA COMPARISON: CT abdomen pelvis dated 04/04/2020, CT chest dated 01/01/2020 prior PET-CT dated 07/16/2019 RADIONUCLIDE AND DOSE: 10.89 mCi F18 FDG The route of agent administration: Intravenous FASTING BLOOD SUGAR: 120 mg/dl CONTRAST TYPE AND DOSE: No CT contrast given. TECHNIQUE: Blood glucose level was verified. Above dose of FDG was injected intravenously. 2-D seg mented attenuation correction images were obtained from the base of the skull to the midthighs. Nonc ontrast CT images were obtained for attenuation correction and fusion with emission images. CT image s were performed without oral or intravenous contrast and are not sensitive for parenchymal lesions. A series of overlapping emission PET images were obtained. Images [facility] and [facility] by the radiologist. Images stored on PACS. LIMITATIONS: None. FINDINGS: HEAD AND NECK: There is abnormal uptake in a intraparotid lymph node. SUV is measured at 5.7 not significantly changed from prior study. Symmetric uptake at the level of the glottis is most likely physiologic. Mild asymmetric uptake just inferior and medial to the left thyroid lobe. No c orresponding CT abnormality. CHEST: Abnormal uptake in soft tissue nodule in the right upper lobe with surrounding ground-glass op acity. SUV is measured 3.6. This is stable from prior exam. No abnormal uptake in the spiculated m ass best demonstrated on series 3, image 89. ABDOMEN AND PELVIS: No areas of abnormal metabolic activity in the abdomen or pelvis. Expected physi ologic activity is present in the genitourinary system and bowel. PROXIMAL LOWER EXTREMITIES: No areas of abnormal metabolic activity in the soft tissues of the lower extremities. BONES: No abnormal metabolic activity in the visualized skeleton. ADDITIONAL CT FINDINGS: Incidental note is made of gallstones. OTHER: No other significant findings. IMPRESSION: 1. Abnormal uptake in the left intraparotid lymph node. SUV is measured at 5.7. This i s not significantly changed from prior study. 2. Abnormal uptake in the right upper lobe nodule with surrounding ground-glass opacity. SUV is 3.6 consistent with neoplasm. This is not significantly changed from prior study. No abnormal uptake i n the spiculated right upper lobe mass. TECHNICAL DOCUMENTATION: JOB ID: [id number] 2010 [employer]- All Rights Reserved Reading location - IP/workstation name: [email or web address]
== END ==
LOC: RAD 09:00
PROVIDERS: ATTEND Internal Medicine
DX: C34.32 Malignant neoplasm of lower lobe, left bronchus or lung (principal)
CPT/HCPCS: 78815; A9552

== ENCOUNTER → 2020-07-05 | Outpatient (CLI) | payer MEDICARE, OTHER ==
--- NOTE | 2020-07-05 10:39 | RADIOLOGY REPORT (SQ) ---
EXAM DESCRIPTION: CT CHEST WITH IMAGES COMPLETED DATE/TIME: 07/05/2020 8:18 am REASON FOR STUDY: C34.32 MALIGNANT NEOPLASM OF LOWER LOBE, LEFT BRONCHUS OR LUNG C34.32 MALIGNANT N EOPLASM OF LOWER LOBE, LEFT BRONCHUS OR GABRIELLA COMPARISON: PET-CT 04/16/2020 CT chest 01/01/2020 TECHNIQUE: CT scan of the chest performed using helical scanning technique with dynamic intravenous contrast injection. Images reviewed with lung, soft tissue and bone windows. Reconstructed coronal and sagittal MPR and MIP images reviewed. All images stored on PACS. All CT scanners at this facility use dose modulation, iterative reconstruction, and/or weight based d osing when appropriate to reduce radiation dose to as low as reasonably achievable (ALARA). [facility]: Dose Right [facility]: CareDose [facility]: Dose Right [facility]: Teradose 4D [facility]: [employer] CONTRAST TYPE AND DOSE: contrast/concentration: Isovue 350.00 mmol/ml; Total Contrast Delivered: 80. 0 ml; Total Saline Delivered: 55.0 ml RENAL FUNCTION: 1.1 creatinine RADIATION DOSE: CT Rad equipment meets quality standard of care and radiation dose reduction techniq ues were employed. CTDIvol: 6.6 mGy. DLP: 248 mGy-cm. . LIMITATIONS: None. FINDINGS: LUNGS AND PLEURA: In the right upper lobe abutting the minor fissure, a smooth soft tissue density 1.3 x 1 cm mass is present on coronal image 39 and axial image 47. This is new compared to CT chest 01/01/2020 and PET-CT 04/16/2020. There is persistent ground-glass opacity along the medial aspect right upper lobe. Within this groun d-glass opacity, two less than 5 mm noncalcified nodules are present on axial image 47 and 48. A sta ble 7 mm nodule is present on axial image 49. A 1.4 cm partially calcified spiculated nodule is present on axial image 67, this was non metabolic o n PET-CT 04/16/2021. Patient has had partial resection of the right upper lobe and partial resection of the left upper lob e with staple lines present. No pleural effusion. No pneumothorax. Airways are patent. HILAR AND MEDIASTINAL STRUCTURES: No identified masses or abnormal nodes. HEART AND VASCULAR STRUCTURES: No aneurysm or dissection. No central pulmonary emboli. No pericardi al effusion. HARDWARE: Left permanent central line tip superior vena cava UPPER ABDOMEN: No significant findings. Limited exam. THYROID AND OTHER SOFT TISSUES: No masses. No adenopathy. BONES: No significant finding. OTHER: No other significant finding. IMPRESSION: New right upper lobe 1.3 x 1 cm nodule along the minor fissure TECHNICAL DOCUMENTATION: JOB ID: [id number] Quality ID # [id number]: Final reports with documentation of one or more dose reduction techniques (e.g., Au tomated exposure control, adjustment of the mA and/or kV according to patient size, use of iterative reconstruction technique) 2010 [employer]- All Rights Reserved Reading location - IP/workstation name: [email or web address]
== END ==
LOC: RAD 07:46
PROVIDERS: ATTEND Internal Medicine
DX: C34.32 Malignant neoplasm of lower lobe, left bronchus or lung (principal); R91.1 Solitary pulmonary nodule
CPT/HCPCS: 71260; 82565

== ENCOUNTER → 2020-07-16 | Outpatient (CLI) | payer MEDICARE, OTHER ==
--- NOTE | 2020-07-17 11:56 | RADIOLOGY REPORT (SQ) ---
EXAM DESCRIPTION: PET CT SKULL/THIGH IMAGES COMPLETED DATE/TIME: 07/16/2020 3:02 pm REASON FOR STUDY: C34.12 MALIGNANT NEOPLASM OF UPPER LOBE, LEFT BRONCHUS OR LUNG C34.12 MALIGNANT N EOPLASM OF UPPER LOBE, LEFT BRONCHUS OR GABRIELLA COMPARISON: PET from 04/16/2029, CT of the chest with contrast from 07/05/[address] of the abdomen a nd pelvis with contrast from 04/04/2020. RADIONUCLIDE AND DOSE: 10 mCi F18 FDG The route of agent administration: Intravenous FASTING BLOOD SUGAR: 103 mg/dl CONTRAST TYPE AND DOSE: No CT contrast given. TECHNIQUE: Blood glucose level was verified. Above dose of FDG was injected intravenously. 2-D seg mented attenuation correction images were obtained from the base of the skull to the midthighs. Nonc ontrast CT images were obtained for attenuation correction and fusion with emission images. CT image s were performed without oral or intravenous contrast and are not sensitive for parenchymal lesions. A series of overlapping emission PET images were obtained. Images reviewed and manipulated at [facility] work station by the radiologist. Images stored on PACS. LIMITATIONS: None. FINDINGS: HEAD AND NECK: Stable FDG avid left intraparotid nodule that has a maximum SUV of 9.2. CHEST: The trachea and main bronchi are patent. There re- demonstration of a surgical staple line in the superior portion of the right upper lobe. The reticulonodular opacities in the inferior medial aspect of the right upper lobe are unchanged and demonstrate heterogeneous elevated FDG uptake. The 15 x 12 mm nodule in the right upper lobe (image 83 of series 3) that abuts the interlobar fissure is also FDG avid and it has a maximum SUV of 6.5. The 9 mm nodule in the left lower lobe (image 107 of series 3) is unchanged and it demonstrates no abnormal FDG uptake on PET. They are ABDOMEN AND PELVIS: The liver demonstrates heterogeneous FDG uptake with an average SUV of 2.5. Ther e is expected physiologic activity throughout the gastrointestinal and genitourinary tracts. There a re no areas of abnormal metabolic activity in the abdomen and pelvis. PROXIMAL LOWER EXTREMITIES: No areas of abnormal metabolic activity in the soft tissues of the lower extremities. BONES: No areas of abnormal metabolic activity in the abdomen and pelvis. ADDITIONAL CT FINDINGS: No acute findings on the noncontrast CT. OTHER: No other findings. IMPRESSION: 15 x 12 mm nodule in the right upper lobe (image 83 of series 3) that is FDG avid. The nodules concerning for a malignant neoplasm. Other findings as detailed above. TECHNICAL DOCUMENTATION: JOB ID: [id number] 2010 [employer]- All Rights Reserved Reading location - IP/workstation name: [email or web address]
== END ==
LOC: RAD 08:40
PROVIDERS: ATTEND Physician Assistant Medical
DX: C34.32 Malignant neoplasm of lower lobe, left bronchus or lung (principal)
CPT/HCPCS: 78815; A9552

== ENCOUNTER 2020-09-05 22:24 | Inpatient (IN) | payer MEDICARE, OTHER ==
--- NOTE | 2020-09-05 22:43 | ER Document Report ---
ED Neuro Symptoms/Deficit - General Stated Complaint: ALTERED MENTAL STATUS Time Seen by Provider: 09/05/20 22:35 Primary Care Provider: EMILY PHILLIP PA-C [ALLIED HEALTH PROFESSIONAL] - Follow up as needed Mode of Arrival: Medic Information source: Emergency Med Personnel Cannot obtain history due to: Altered mental status Notes: MY NOTES 79-year-old female arrived by EMS with chief complaint of acute onset at 2139 of incoherence and not speaking and using her right hand to pat her mouth< in a cigarette holding fashion>. Patient not followed any commands per EMS. She began to speak some garbled words just prior to arrival. Her blood pressure is 175/79 with 115 BGL per EMS. She has a history of lung cancer followed by Dr. Daniel since 2016. Patient is on Opdivo because of lung cancer. Warnings on this particular medication include confusion memory problems sleepiness hallucinations seizure-like activity. As well as multiple other problems like pneumonitis. This is a antibody; Nivolumab. She also has hypertension. CT scan was performed upon arrival patient has also abrasion to her right forearm and family does not know how this occurred. They reports she was sitting with the family when her symptoms began. Prior medications in the past include atenolol 50 Lopid Zofran Phenergan and Risperdal. I spoke with son Jeanmarie at 00 30 this morning. He was in room 3 at that time. He advises at half time this evening while watching football game around 0 he noticed patient had a staring spell and was only is talking gibberish. Everyone in the family was sitting around the television set watching the football game. She has never had this happen in the past. He called 911 at this time. He does report she had 15 years ago a sepsis episode with SBO requiring surgery. He also reports she sees Dr. Dean at [facility] because of kidney cancer and also is followed by Dr. Daniel. 09/06/20 03:05 (created 09/06/20 03:16) - ED Nursing Note by SHERIF WHITING Acct Num: [id number] : 1940 Patient Age: 79 Pt resting with eyes closed, easily woken, NAD noted. Luis placed per verbal MD order, UA sent, will ctm. Initialized on 09/06/20 03:16 - END OF NOTE TRAVEL OUTSIDE OF THE [place] IN LAST 30 DAYS: No - HPI Patient complains to provider of: Difficulty standing, Difficulty walking, Speech Impairment, Weakness Onset: Just prior to arrival Symptoms are: Constant Duration: Continues in ED Quality of pain: No pain Baseline Cognitive: Alert but confused Baseline Gait: Walks w/o assistance Character of altered mental status: Confused - Related Data Allergies/Adverse Reactions: Sulfa (Sulfonamide Antibiotics) Allergy (Severe, Verified 02/06/14 10:58) Hives Past Medical History - General Information source: Emergency Med Personnel - Social History Smoking Status: Former Smoker Cigarette use (# per day): No - unk Chew tobacco use (# tins/day): No Smoking Education Provided: No Frequency of alcohol use: None Drug Abuse: None Lives with: Family Family History: Reviewed & Not Pertinent Patient has suicidal ideation: No Patient has homicidal ideation: No - Past Medical History Cardiac Medical History: Reports: Hx Hypercholesterolemia, Hx Hypertension Denies: Hx Congestive Heart Failure, Hx Coronary Artery Disease, Hx Heart Attack Pulmonary Medical History: Denies: Hx Asthma, Hx Bronchitis, Hx COPD, Hx Pneumonia, Hx Tuberculosis Neurological Medical History: Denies: Hx Cerebrovascular Accident, Hx Seizures, Hx Parkinson's Disease Renal/ Medical History: Denies: Hx End Stage Renal Disease, Hx Kidney Stones GI Medical History: Reports: Hx Gastroesophageal Reflux Disease. Denies: Hx Cirrhosis, Hx Ulcer Musculoskeletal Medical History: Denies Hx Arthritis, Denies Hx Multiple Sclerosis Psychiatric Medical History: Denies: Hx Bipolar Disorder, Hx Depression, Hx Schizophrenia Past Surgical History: Reports: Hx Abdominal Surgery - 2000, Hx Bowel Surgery, Hx Hysterectomy. Denies: Hx Pacemaker - Immunizations Hx Diphtheria, Pertussis, Tetanus Vaccination: Yes Review of Systems - Review of Systems Constitutional: See HPI, Weakness, Recent illness EENT: No symptoms reported Cardiovascular: No symptoms reported Respiratory: No symptoms reported Gastrointestinal: No symptoms reported Genitourinary: No symptoms reported Female Genitourinary: No symptoms reported Musculoskeletal: No symptoms reported Skin: See HPI, Other - Skin avulsion right forearm wrist Hematologic/Lymphatic: No symptoms reported Neurological/Psychological: See HPI, Confusion, Weakness -: Yes All other systems reviewed and negative Physical Exam - Vital signs Interpretation: Normal - General General appearance: Appears well, Alert - HEENT Head: Normocephalic, Atraumatic Eyes: Normal Pupils: PERRL - Respiratory Respiratory status: No respiratory distress Chest status: Nontender Breath sounds: Normal Chest palpation: Normal - Cardiovascular Rhythm: Regular Heart sounds: Normal auscultation Murmur: No - Abdominal Inspection: Normal Distension: No distension Bowel sounds: Normal Tenderness: Nontender Organomegaly: No organomegaly - Rectal Hemorrhoids: Other - Deferred - Genitourinary Bimanuel exam: Other - Deferred - Back Back: Normal, Nontender - Extremities General upper extremity: Normal inspection, Nontender, Normal color, Normal ROM, Normal temperature General lower extremity: Normal inspection, Nontender, Normal color, Normal ROM, Normal temperature, Normal weight bearing. No: Gala's sign - Neurological Neuro grossly intact: No Cognition: Confused Orientation: Disoriented to person, Disoriented to place, Disoriented to time, Disoriented to events Abhijit Coma Scale Eye Opening: To Voice Abhijit Coma Scale Verbal: Confused Speech: Normal Cranial nerves: Other - No facial palsy or cranial nerve anomaly Cerebellar coordination: Other - Unable to follow commands Motor strength normal: LUE, RUE, LLE, RLE Sensory: Normal - Psychological Associated symptoms: Anxious - Skin Skin Temperature: Warm Skin Moisture: Dry Skin Color: Normal Skin irregularity: Laceration - Skin laceration to right distal forearm wrist area covered by [place] by EMS upon arrival Course - Laboratory Results Result Diagrams: 09/05/20 22:31 09/05/20 22:31 Critical Laboratory Results Reviewed: Yes Attending or Supervising Physician who Reviewed Labs: AIXA ESTRADA JR - Radiology Results Radiology Results Interpreted: 09/05/20 23:02 Radiology called me at 2302 alert no hemorrhage no active CVA. This was with Dr. Eugene. Chest x-ray was read by Dr. Jean as having left basilar opacity but on my exam it appears that the patient has interstitial pattern d iffusely. 09/05/20 23:17 Critical Radiology Results Reviewed: Yes Attending or Supervising Physician who Reviewed Radiology: AIXA ESTRADA JR EKG Interpretation by Me EKG shows normal: Sinus rhythm Rate: Normal Rhythm: NSR - [address] elevation no ST depression no T wave elevation no T wave depression and this EKG was read by me with axis within normal limits. I agree with the EKG machine findings as well. Critical Care Note - Critical Care Note Comments: I spoke with Kyung at transfer center at [facility] at 00 38 and demographics was sent to [facility] by statistical secretary as well as power share of CT images to [facility]. I spoke with Heidi at the transfer center at 0 115 and we also spoke with Mary WALLS neurologist at [facility] and she advises CTA head neck and low dose with Keppra in case this is Sanjiv's paralysis or seizure like activity. I spoke with [place] transfer center at [facility] at 0400 about the aneurysm left anterior branch but otherwise no occlusion no stroke noted. And these results will be sent to [facility] from CT room. I again discussed this case with [place] transfer center specialist and with [facility] neurology. 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 They advised patient can be admitted here and discharged out to follow-up with Dr. Velez in [place]. I then discussed this case with Dr. Arvizu at 0 450 and he advises he will admit this patient. Discharge - Discharge Clinical Impression: cva like symptoms Condition: Stable Disposition: ADMITTED INPATIENT Referrals: EMILY PHILLIP PA-C [ALLIED HEALTH PROFESSIONAL] - Follow up as needed
--- NOTE | 2020-09-05 22:56 | RADIOLOGY REPORT (SQ) ---
CT of the head: 09/05/2020 9:51 PM INSTRUCTOR EXTENSION WORK HISTORY: 79-year-old patient with concern for stroke, known history of lung cancer. COMPARISON: PET/CT from 07/16/2020 TECHNIQUE: Multiple axial contiguous images were obtained through the head without intravenous contrast administered. This exam was performed according to our departmental dose-optimization program, which includes automated exposure control, adjustment of the mA and/or KV according to the patient's size and/or use of iterative reconstruction technique. FINDINGS: The ventricles and cerebral sulci demonstrate mild prominence, consistent with cerebral atrophy. There are mild periventricular hypodensities, suggestive of periventricular white matter changes. The cherry-white matter differentiation is within normal limits. Both globes appear symmetric. There is partial opacification of the right mastoid air cells again noted. There is mild mucoperiosteal thickening of the ethmoid sinuses. There is a mucous retention cyst seen at the right maxillary sinus. The calvarium is intact. No extra-axial fluid collection is seen. No midline shift or mass effect is apparent. There are no findings to suggest acute intracranial hemorrhage. No hyperdense vascular sign is seen. IMPRESSION: 1. No acute intracranial hemorrhage is seen. 2. Mild cerebral atrophy and periventricular white matter changes are seen. If there is persistent clinical concern for a neurologic deficit, consider MRI brain with diffusion-weighted sequences for further evaluation.
[2020-09-05 23:04] LABS: ABSOLUTE BASOPHILS # (AUTO) 0.1 10^3/uL (0.0-0.2); ABSOLUTE EOSINOPHILS # (AUTO) 0.9 10^3/uL (0.0-0.6); ABSOLUTE LYMPHOCYTES (AUTO) 2.2 10^3/uL (0.5-4.7); ABSOLUTE MONOCYTES (AUTO) 0.5 10^3/uL (0.1-1.4); ABSOLUTE NEUT (AUTO) 4.8 10^3/uL (1.7-8.2); BASOPHILS % (AUTO) 0.8 % (0-2); EOSINOPHILS % (AUTO) 10.3 % (0-6); HEMATOCRIT 39.2 % (36.0-47.0); LYMPHOCYTES % (AUTO) 25.5 % (13-45); MEAN CORPUSCULAR HEMOGLOBIN 29.6 pg (27.0-33.4); MEAN CORPUSCULAR VOLUME 90 fl (80-97); MONOCYTES % (AUTO) 6.4 % (3-13); PLATELET COUNT 241 10^3/uL (150-450); RED BLOOD COUNT 4.38 10^6/uL (3.72-5.28); RED CELL DISTRIBUTION WIDTH 14.9 % (11.5-14.0); TOTAL CELLS COUNTED % (AUTO) 100 %; WHITE BLOOD COUNT 8.5 10^3/uL (4.0-10.5)
[2020-09-05 23:07] LABS: INTERNATIONAL RATION (INR) 0.95; PROTHROMBIN TIME 12.9 SEC (11.4-15.4)
--- NOTE | 2020-09-05 23:13 | RADIOLOGY REPORT (SQ) ---
EXAM DESCRIPTION: XR CHEST 1 VIEW COMPLETED DATE/TME: 09/05/2020 22:39 CLINICAL HISTORY: cva sx COMPARISON: 07/05/2020 FINDINGS: Single frontal radiograph view of the chest. Cardiomediastinal silhouette: Left subclavian Mediport with tip in the SVC. Atherosclerotic calcification and tortuosity of thoracic aorta. Heart is not enlarged. Lungs: No pneumothorax or large effusion. Mild left basilar opacity. Low lung volumes. Bones: Mildly convex curvature of the midthoracic spine. Upper abdomen: No abnormality identified. IMPRESSION: 1. Mild left basilar opacity may represent developing pneumonic process. Continued radiographic follow-up to resolution recommended.
[2020-09-05] MEDS ORDERED: CEFTRIAXONE INJ 1000 MG VIAL IV ONE (23:17)
[2020-09-05] MEDS ORDERED: DEXAMETHASONE SOD PHOS INJ 10 MG/1 ML VIAL IV ONE (23:18)
[2020-09-05] MEDS ORDERED: FAMOTIDINE INJ/PF 20 MG/2 ML SDV IV ONE (23:18)
[2020-09-05] MEDS ORDERED: AZITHROMYCIN INJ 500 MG VIAL IV ONE (23:18)
[2020-09-05 23:22] LABS: ALBUMIN 4.2 g/dL (3.5-5.0); ALKALINE PHOSPHATASE 148 U/L (38-126); ANION GAP 8 (5-19); ASPARTATE AMINO TRANSFERASE 17 U/L (14-36); BILIRUBIN,DIRECT 0.2 mg/dL (0.0-0.4); BILIRUBIN,TOTAL 0.4 mg/dL (0.2-1.3); BLOOD UREA NITROGEN 29 mg/dL (7-20); CALCIUM 9.3 mg/dL (8.4-10.2); CARBON DIOXIDE 26 mmol/L (22-30); CHLORIDE 103 mmol/L (98-107); CREATINE KINASE 56 U/L (30-135); GLUCOSE 124 mg/dL (75-110); POTASSIUM 4.1 mmol/L (3.6-5.0); TOTAL PROTEIN 7.3 g/dL (6.3-8.2)
[2020-09-06] MEDS ORDERED: LEVETIRACETAM 1000 MG/NACL-ISO 1,000 MG/100 ML RTUPB IV ONE (01:17)
--- NOTE | 2020-09-06 01:30 | RADIOLOGY REPORT (SQ) ---
EXAM DESCRIPTION: KUB/ABDOMEN (SINGLE VIEW) RadLex: XR ABDOMEN 1 VIEW (KUB) CLINICAL HISTORY: 79 years Female; on optiva/ hx sbo; COMPARISON: None. FINDINGS: Bowel gas pattern is within normal limits, with no significant distention. No pneumatosis. No suspicious calcifications. Degenerative changes are noted in the lower lumbar spine. IMPRESSION: 1. No acute abdominal findings.
[2020-09-06 03:30] LABS: APPEARANCE,URINE CLEAR; BILIRUBIN,URINE NEGATIVE (NEGATIVE); COLOR,URINE YELLOW; GLUCOSE, URINE NEGATIVE (NEGATIVE); KETONES,URINE NEGATIVE (NEGATIVE); LEUKOCYTE ESTERASE,URINE NEGATIVE (NEGATIVE); NITRITE,URINE NEGATIVE (NEGATIVE); PROTEIN,URINE 30 mg/dL (NEGATIVE); URINE SPECIFIC GRAVITY 1.016; UROBILINOGEN,URINE NEGATIVE mg/dL (<2.0)
--- NOTE | 2020-09-06 03:49 | RADIOLOGY REPORT (SQ) ---
EXAM: 1. CT neck angiography with intravenous contrast. 2. CT head angiography with intravenous contrast. CLINICAL DATA: 79 years Female cva sx Neurology request COUNTS INCLUDE 234 BEDS AT THE [facility]. History of lung cancer TECHNICAL DATA: Following dynamic intravenous nonionic contrast infusion, multiple axial helical CT images with multiplanar reconstructions were obtained through the head and neck. MIP images were not obtained. The CT study is performed according to ALARA (as low as reasonably achievable) or ALARA/IMAGE GENTLY, with automatic adjustment of mA and/or kV according to patient size. Performed on: 09/06/2020 at 2:36 AM COMPARISONS: Head CT performed on 09/05/2020 FINDINGS: CTA NECK: AORTA: The aortic arch is well imaged and demonstrates conventional branching. There are atherosclerotic calcifications along the thoracic aorta and proximal great vessels. There is mural thrombus along the proximal descending thoracic aorta. The origins of the left subclavian artery, left common carotid artery and innominate artery are patent. VERTEBRAL ARTERIES: The LEFT vertebral artery is normal in caliber and contour without evidence of dissection or significant stenosis. The RIGHT vertebral artery is normal in caliber and contour without evidence of dissection or significant stenosis. CAROTID ARTERIES: The LEFT common carotid artery is unremarkable. There is no evidence of stenosis, dissection or occlusion The carotid bulb demonstrates no significant plaque. The LEFT internal carotid artery is normal in caliber and contour without evidence of significant stenosis, dissection or occlusion. The LEFT external carotid artery is unremarkable. The RIGHT common carotid artery is unremarkable. There is no evidence of stenosis, dissection or occlusion. The carotid bulb demonstrates no significant plaque. The RIGHT internal carotid artery is unremarkable. There is no evidence of stenosis, dissection or occlusion. The RIGHT external carotid artery is unremarkable. CTA HEAD: LEFT: INTERNAL CAROTID ARTERY: The distal internal carotid artery is unremarkable. There are mild atherosclerotic calcifications along the cavernous left ICA. ANTERIOR CEREBRAL ARTERY:The A1 segment is normal in caliber and contour. The A2 segment is normal in caliber and contour. The region of the anterior communicating artery is unremarkable. MIDDLE CEREBRAL ARTERY: The M1 segment is normal in caliber and contour. The M2 branches normal in caliber and contour. POSTERIOR CEREBRAL ARTERY:The P1 segment is normal in caliber and contour. The P2 segment is normal in caliber and contour. The left posterior communicating artery is hypoplastic. VERTEBRAL ARTERY: The intradural left vertebral artery is normal in caliber and contour. RIGHT: INTERNAL CAROTID ARTERY: The distal internal carotid artery is unremarkable. There are mild atherosclerotic calcifications along the cavernous right ICA. ANTERIOR CEREBRAL ARTERY: The A1 segment is normal in caliber and contour. The A2 segment is normal in caliber and contour. MIDDLE CEREBRAL ARTERY:The M1 segment is normal in caliber and contour. There is a prominent focal area of contrast opacification at the left M1 bifurcation concerning for an aneurysm measuring approximately 3 x 4 mm in diameter. The M2 branches normal in caliber and contour. POSTERIOR CEREBRAL ARTERY: The P1 segment is normal in caliber and contour. The P2 segment is normal in caliber and contour. The right posterior communicating artery is hypoplastic. VERTEBRAL ARTERY: The intradural right vertebral artery is normal in caliber and contour. BASILAR ARTERY: The basilar artery is normal in caliber and contour. DURAL VENOUS SINUSES: The dural venous sinuses are patent. NON-ANGIOGRAPHIC FINDINGS: There is likely parenchymal fibrosis in the anterior and medial right upper lobe. There are degenerative changes of the thoracic spine with straightening and slight reversal of the normal cervical lordosis. There is trace mucosal thickening of the paranasal sinuses and there is a small right maxillary sinus mucus retention cyst. There is opacification of the right mastoid air cells. The right middle ear cavity is grossly clear. The orbital contents are grossly unremarkable. There are no definite focal pathologic areas of enhancement within the brain. IMPRESSION: CTA NECK: 1. Normal CTA of the neck. There is no evidence of stenosis as per the NASCET criteria. 2. Atherosclerotic calcifications along the aortic arch and proximal great vessels. There is mural thrombus along the proximal descending thoracic aorta. 3. Parenchymal fibrosis suspected in the anterior and medial right upper lobe. CTA HEAD: 1. Findings suspicious for an aneurysm along the distal left M1 segment at the left M2 bifurcation measuring approximately 3 x 4 mm in diameter. 2. Otherwise, unremarkable intracranial CTA.
[2020-09-06] MEDS ORDERED: ACETAMINOPHEN 325 MG TABLET PO PRN (05:32)
[2020-09-06] MEDS ORDERED: LORAZEPAM INJ 2 MG/1 ML VIAL IV ONE ×2 (06:14→09:26)
--- NOTE | 2020-09-06 06:14 | PDOC H&P ---
History of Present Illness Admission Date/PCP: HOMER WYATT MD Patient complains of: Speech abnormality and confusion History of Present Illness: MARC MAURER is a 79 year old female The patient has locally metastatic lung cancer for about 6 years. She had several lung lesions but as far as I know she did not have any widespread metastatic disease. She never had lung surgery, she did not receive radiation therapy. She is being treated with chemotherapy and immunotherapy. Disease is reasonably well controlled. She does not have any hypoxic respiratory failure. The patient has hypertension and dyslipidemia. She never suffered a stroke. History was obtained from the patient's son. They were watching TV and last night ,around 930 pm the patient suddenly developed a spell with staring away. After the spell the developed confusion and inability to speak normally. Nothing ever happened like that. She was able to move her arms and legs. She was brought to the emergency department. Initially thrombolytic treatment was considered but eventually the consulting neurologist from [facility] recommended not to proceed with thrombolytic treatment. The diagnosis was uncertain. The patient speech continues to improve though she remained confused. Now she is able to say certain things perfectly fine but her speech is far from being normal. Sometimes she produces only mixed words without much of meaning. She does not appear to be in any distress. When I went to see her she wanted to eat and drink. She did not appear to be in pain or respiratory distress. She was confused, oriented only to herself. Past Medical History Cardiac Medical History: Reports: Hyperlipidema, Hypertension Denies: Congestive Heart Failure, Coronary Artery Disease, Myocardial Infarction Pulmonary Medical History: Denies: Asthma, Bronchitis, Chronic Obstructive Pulmonary Disease (COPD), Pneumonia, Tuberculosis Neurological Medical History: Denies: Hemorrhagic CVA, Ischemic CVA, Migraine, Seizures Endocrine Medical History: Denies: Diabetes Mellitus Type 1, Diabetes Mellitus Type 2 Renal/ Medical History: Denies: End Stage Renal Disease Malignancy Medical History: Reports: Lung Cancer, Renal (Kidney) Cancer GI Medical History: Reports: Gastroesophageal Reflux Disease Denies: Cirrhosis Musculoskeltal Medical History: Denies: Arthritis Skin Medical History: Reports: None Psychiatric Medical History: Denies: Bipolar Disorder, Depression Hematology: Reports: Anemia Denies: Bleeding Tendencies Infectious Medical History: Reports: None Past Surgical History Past Surgical History: Reports: Hysterectomy Denies: Pacemaker Social History Lives with: Family Smoking Status: Former Smoker Frequency of Alcohol Use: None Hx Recreational Drug Use: No Hx Prescription Drug Abuse: No - Advance Directive Resuscitation Status: Full Code Surrogate healthcare decision maker:: Her son Family History Family History: DM Parental Family History Reviewed: Yes Children Family History Reviewed: Yes Sibling(s) Family History Reviewed.: Yes Medication/Allergy Home Medications: Acetaminophen [Tylenol 325 mg Tablet] 650 mg PO Q4HP PRN 08/24/12 Aspirin [Aspirin 81 mg Chewable Tablet] 81 mg PO DAILY 08/24/12 Atenolol [Tenormin 50 mg Tablet] 50 mg PO DAILY 08/24/12 Folic Acid 1 mg PO DAILY 08/24/12 Gemfibrozil [Lopid 600 mg Tablet] 600 mg PO BID 08/24/12 Ondansetron HCl [Zofran 8 mg Tablet] 8 mg PO Q8HP PRN 08/29/12 Promethazine HCl [Phenergan 25 mg Tablet] 25 mg PO Q6HP PRN 08/29/12 Estrogens,Conjugated [Premarin 0.3 mg Tablet] 0.3 mg PO DAILY 08/15/13 L.acidoph/L.bulg/B.bif/S.therm [Bacid Caplet] 1 tab PO BID #20 tablet 10/17/13 Clindamycin HCl [Cleocin 300 mg Capsule] 300 mg PO TID #30 capsule 02/06/14 Risperidone [Risperdal] 0.5 mg PO DAILY PRN #20 tablet 04/23/16 Allergies/Adverse Reactions: Sulfa (Sulfonamide Antibiotics) Allergy (Severe, Verified 02/06/14 10:58) Hives Review of Systems Constitutional: PRESENT: other - Prior to this episode the patient was doing well. Eyes: ABSENT: visual disturbances Ears: ABSENT: hearing changes Cardiovascular: ABSENT: chest pain, dyspnea on exertion, edema Respiratory: ABSENT: cough, dyspnea, sputum Genitourinary: ABSENT: dysuria, hematuria Neurological: PRESENT: abnormal speech - Developed suddenly, confusion - Deve loped suddenly Psychiatric: PRESENT: other - No history of dementia according to the son.. ABSENT: anxiety, depression, homidical ideation, suicidal ideation Physical Exam Vital Signs: Temp Pulse Resp BP Pulse Ox 97.9 F 73 21 H 134/59 H 97 09/05/20 22:25 09/06/20 01:47 09/06/20 02:01 09/06/20 02:01 09/06/20 02:01 Intake & Output 09/04/20 09/05/20 09/06/20 06:59 06:59 06:59 Intake Total 100 Balance 100 Weight 69.2 kg General appearance: PRESENT: no acute distress, cooperative Head exam: PRESENT: atraumatic Eye exam: PRESENT: conjunctiva pink, EOMI, PERRLA. ABSENT: scleral icterus Mouth exam: PRESENT: moist, tongue midline Neck exam: ABSENT: carotid bruit, JVD, lymphadenopathy, thyromegaly Respiratory exam: PRESENT: clear to auscultation damaris. ABSENT: rales, rhonchi, wheezes Cardiovascular exam: PRESENT: RRR. ABSENT: diastolic murmur, rubs, systolic murmur Pulses: PRESENT: normal dorsalis pedis pul Vascular exam: PRESENT: normal capillary refill GI/Abdominal exam: PRESENT: normal bowel sounds, soft. ABSENT: distended, guarding, mass, organolmegaly, rebound, tenderness Extremities exam: PRESENT: full ROM. ABSENT: calf tenderness, clubbing, pedal edema Musculoskeletal exam: ABSENT: ambulatory, deformity, dislocation, full ROM, normal inspection, tenderness, other Neurological exam: PRESENT: alert, awake, oriented to person, other - Improving expressive aphasia/dysarthria. Confused.. ABSENT: oriented to place, oriented to time, oriented to situation Skin exam: PRESENT: dry, intact, warm. ABSENT: cyanosis, rash Results Laboratory Results: 09/05/20 22:31 09/05/20 22:31 09/05/20 09/05/20 09/05/20 22:31 22:31 22:31 WBC 8.5 RBC 4.38 Hgb 13.0 Hct 39.2 MCV 90 MCH 29.6 MCHC 33.0 RDW 14.9 H Plt Count 241 Seg Neutrophils % 57.0 Sodium 136.7 L Potassium 4.1 Chloride 103 Carbon Dioxide 26 Anion Gap 8 BUN 29 H Creatinine 1.14 Est GFR ( Amer) 56 L Glucose 124 H Lactic Acid 0.8 Calcium 9.3 Total Bilirubin 0.4 AST 17 Alkaline Phosphatase 148 H Total Protein 7.3 Albumin 4.2 Urine Color Urine Appearance Urine pH Ur Specific [place] Urine Protein Urine Glucose (UA) Urine Ketones Urine Blood Urine Nitrite Ur Leukocyte Esterase Urine WBC (Auto) Urine RBC (Auto) 09/06/20 03:10 WBC RBC Hgb Hct MCV MCH MCHC RDW Plt Count Seg Neutrophils % Sodium Potassium Chloride Carbon Dioxide Anion Gap BUN Creatinine Est GFR ( Amer) Glucose Lactic Acid Calcium Total Bilirubin AST Alkaline Phosphatase Total Protein Albumin Urine Color YELLOW Urine Appearance CLEAR Urine pH 6.0 Ur Specific [place] 1.016 Urine Protein 30 H Urine Glucose (UA) NEGATIVE Urine Ketones NEGATIVE Urine Blood SMALL H Urine Nitrite NEGATIVE Ur Leukocyte Esterase NEGATIVE Urine WBC (Auto) 4 Urine RBC (Auto) 4 09/05/20 09/05/20 22:31 22:31 Creatine Kinase 56 Troponin I < 0.012 Impressions: Chest X-Ray 09/05/20 22:36 IMPRESSION: 1. Mild left basilar opacity may represent developing pneumonic process. Continued radiographic follow-up to resolution recommended. Head CT 09/05/20 22:36 IMPRESSION: 1. No acute intracranial hemorrhage is seen. 2. Mild cerebral atrophy and periventricular white matter changes are seen. If there is persistent clinical concern for a neurologic deficit, consider MRI brain with diffusion-weighted sequences for further evaluation. KUB X-Ray 09/06/20 00:33 IMPRESSION: 1. No acute abdominal findings. Head CTA 09/06/20 01:19 IMPRESSION: CTA NECK: 1. Normal CTA of the neck. There is no evidence of stenosis as per the NASCET criteria. 2. Atherosclerotic calcifications along the aortic arch and proximal great vessels. There is mural thrombus along the proximal descending thoracic aorta. 3. Parenchymal fibrosis suspected in the anterior and medial right upper lobe. CTA HEAD: 1. Findings suspicious for an aneurysm along the distal left M1 segment at the left M2 bifurcation measuring approximately 3 x 4 mm in diameter. 2. Otherwise, unremarkable intracranial CTA. Neck CTA 09/06/20 01:19 IMPRESSION: CTA NECK: 1. Normal CTA of the neck. There is no evidence of stenosis as per the NASCET criteria. 2. Atherosclerotic calcifications along the aortic arch and proximal great vessels. There is mural thrombus along the proximal descending thoracic aorta. 3. Parenchymal fibrosis suspected in the anterior and medial right upper lobe. CTA HEAD: 1. Findings suspicious for an aneurysm along the distal left M1 segment at the left M2 bifurcation measuring approximately 3 x 4 mm in diameter. 2. Otherwise, unremarkable intracranial CTA. Assessment and Plan - Diagnosis (1) Stroke-like symptoms Is this a current diagnosis for this admission?: Yes Plan: She had a staring spell followed by inability to speak. Later on speech improved but remains confused and speech still abnormal. Neurologist from [facility] did not recommend thrombolytic treatment. Diagnosis is uncertain. They recommended treatment with low-dose Keppra. He received 1000 mg Keppra intravenously. I am going to start her on 500 mg Keppra twice a day by mouth. Still the most likely explanation of the symptoms is acute ischemic stroke. Second possibility is metastatic disease but it seems to be less likely but ca nnot be excluded. Her symptoms developed fairly suddenly. Toxic effect to cancer treatment seems to be less likely, symptoms developed very suddenly. She is going to be admitted to intermediate care unit. She had CT angiogram of the head and neck which showing a small intracranial aneurysm otherwise normal. She is going to have an MRI of the brain with and without contrast considering the possibility of metastatic disease. She is going to have an ultrasound to complete stroke work-up. I have changed her fenofibrate to a statin. Once MRI is completed she can continue taking her aspirin. Her blood pressure is in the normal range, once it is appropriate we are going to resume her beta-carrillo. DVT prophylaxis with compression device now. Once MRI of the brain result is available and there is no contraindication we can start DVT prophylaxis with subcutaneous Lovenox. Check fasting lipid panel and hemoglobin A1c. Speech, occupational, physical therapy. The patient passed bedside swallowing evaluation. She was started on regular consistency diet. Patient will need neurology follow-up with Dr. Velez , [facility]. (2) Brain aneurysm Is this a current diagnosis for this admission?: Yes Plan: She has a small 3 x 4 mm intracranial aneurysm. This is definitely not causing her symptoms. She is going to follow-up with neurology. (3) Lung cancer Qualifiers: Laterality: unspecified laterality Lung location: unspecified part of lung Qualified Code(s): C34.90 - Malignant neoplasm of unspecified part of unspecified bronchus or lung Is this a current diagnosis for this admission?: Yes Plan: She has lung cancer which involving several parts of her lung. She has been treated with chemotherapy and immunotherapy for 6 years. Metastatic disease to the brain cannot be excluded. (4) Abnormal chest xray Is this a current diagnosis for this admission?: Yes Plan: She has an abnormal chest x-ray. Official reading was suggesting possible pneumonia. I do not think the patient has pneumonia. She has no fever, WBC normal, she has no respiratory symptoms. She received ceftriaxone and Zithromax in the emergency department. I do not feel antibiotic treatment needs to be continued at this point. (5) Hypertension Qualifiers: Hypertension type: essential hypertension Qualified Code(s): I10 - Essential (primary) hypertension Is this a current diagnosis for this admission?: Yes Plan: She is on atenolol at home. Continue monitoring blood pressure and resume atenolol when it is necessary. - Plan Summary Summary: The patient was admitted to intermediate care unit with strokelike symptoms. She has history of lung cancer. She either suffered a stroke or she has metastatic disease to the brain. Other etiologies seems to be less likely. Her symptoms improved but she still has considerable amount of speech abnormality and significant confusion. MRI of the brain was ordered, hopefully this is going to give us the answer. - Time Time Spent with patient: 35 or more minutes Anticipated Discharge Disposition: Home, Self Care Anticipated Discharge Timeframe: within 72 hours - Inpatient Certification Based on my medical assessment, after consideration of the patient's comorbidities, presenting symptoms, or acuity I expect that the services needed warrant INPATIENT care.: Yes I certify that my determination is in accordance with my understanding of Medicare's requirements for reasonable and necessary INPATIENT services [42 CFR 412.3e].: Yes Medical Necessity: Need Close Monitoring Due to Risk of Patient Decompensation, Need For Continuous Telemetry Monitoring, Need for Neurological Checks, Risk of Complication if Not Cared For in Hospital
[2020-09-06] MEDS ORDERED: LEVETIRACETAM 500 MG TABLET PO SCH (10:00)
--- NOTE | 2020-09-06 10:41 | RADIOLOGY REPORT (SQ) ---
EXAM DESCRIPTION: MRI HEAD COMBO IMAGES COMPLETED DATE/TIME: 09/06/2020 10:18 am REASON FOR STUDY: CVA versus metastatic disease from lung cancer COMPARISON: CT brain 09/05/2020. CTA head 09/06/2020. TECHNIQUE: Multiplanar imaging includes noncontrasted T1, T2, FLAIR, diffusion with ADC map and post gadolinium contrast T1 sequences. Images stored on PACS. CONTRAST TYPE AND DOSE: 10 mL Prohance. RENAL FUNCTION: Not indicated. ACR Type II contrast agent associated with few, if any, unconfounded cases of NSF LIMITATIONS: Significant motion artifact is noted on multiple sequences. FINDINGS: ANATOMY: No anomalies. Normal vascular flow voids. Pituitary fossa normal. CSF SPACES: Mild age related atrophy and associated prominence. No focal fluid collections or hemorr sherie suggested. CEREBRUM: Left MCA distribution temporal lobe FLAIR/ T2 hyperintensity consistent with edema. Limite d assessment for enhancing lesions given motion. POSTERIOR FOSSA: No signal alteration. No hemorrhage. No edema, masses, or mass effect. Internal pily tory canals, cerebellopontine angles, mastoids normal. No enhancing lesions. No abnormal enhancement post contrast. DIFFUSION IMAGING: Restricted diffusion in the left MCA distribution corresponding to edema. Consist ent with recent CVA. ORBITS: No masses. Globes normal. PARANASAL SINUSES: No fluid levels. Mucosa normal. OTHER: No other significant finding. IMPRESSION: 1. Consistent with recent left MCA distribution CVA. Limited study as above. No gross intracranial hemorrhage. EVIDENCE OF ACUTE STROKE: NO. TECHNICAL DOCUMENTATION: JOB ID: [id number] 2010 [employer]- All Rights Reserved Reading location - IP/workstation name: [email or web address]
[2020-09-06] MEDS ORDERED: GLUCAGON,HUMAN RECOMB 1 MG INJ SUBCUT PRN (11:14)
[2020-09-06] MEDS ORDERED: DEXTROSE 50%-WATER 25 GM/50 ML DISP.SYRIN IV PRN ×2 (11:14)
[2020-09-06] MEDS ORDERED: DEXTROSE 40% GEL 15 GM TUBE PO PRN ×2 (11:14)
--- NOTE | 2020-09-06 12:52 | PDOC TRANSFER SUMMARY ---
General Admission Date/PCP: 09/06/20 06:01 HOMER WYATT MD Admission Date: 09/06/20 Transfer Date: 09/06/20 Accepting Facility: [facility] Accepting Physician: Dr. Jacobs(hospitalist), Dr. Paulo Chambers (Neurology) Resuscitation Status: Full Code - Transfer Diagnosis (1) Acute ischemic cerebrovascular accident (CVA) involving left middle cerebral artery territory Is this a current diagnosis for this admission?: Yes (2) Thrombosis of thoracic aorta Is this a current diagnosis for this admission?: Yes (3) Aphasia due to acute stroke Is this a current diagnosis for this admission?: Yes (4) Brain aneurysm Is this a current diagnosis for this admission?: Yes (5) Hypertension Is this a current diagnosis for this admission?: Yes (6) Lung cancer Is this a current diagnosis for this admission?: Yes - Transfer Medications Home Medications: Aspirin [Aspirin 81 mg Chewable Tablet] 81 mg PO DAILY 08/24/12 Atenolol [Tenormin 50 mg Tablet] 50 mg PO DAILY 08/24/12 Gemfibrozil [Lopid 600 mg Tablet] 600 mg PO DAILY 08/24/12 Furosemide [Lasix 20 mg Tablet] 20 mg PO DAILY 09/06/20 Transfer Medications: Current Medications Acetaminophen (Acetaminophen 325 Mg Tablet) 650 mg PO Q4HP PRN PRN Reason: Temp greater than 101F Stop: 10/06/20 05:31 Aspirin (Aspirin 300 Mg Supp, Rectal) 300 mg [place] DAILY [facility] Stop: 10/06/20 11:59 Atorvastatin Calcium (Atorvastatin Calcium 40 Mg Tablet) 40 mg PO QHS [facility] Stop: 10/06/20 21:59 Dextrose (Dextrose 50%-Water 25 Gm/50 Ml Disp.Syrin) 12.5 gm IV PRN PRN; Protocol PRN Reason: FOR BG 50-69 IN ALERT PATIENT Stop: 10/06/20 11:13 Dextrose (Dextrose 50%-Water 25 Gm/50 Ml Disp.Syrin) 25 gm IV PRN PRN; Protocol PRN Reason: See Label Comments Stop: 10/06/20 11:13 Glucagon (Glucagon,Human Recomb 1 Mg Inj) 1 mg SUBCUT PRN PRN; Protocol PRN Reason: Evaluate for BG < 70 Stop: 10/06/20 11:13 Glucose (Dextrose 40% Gel 15 Gm Tube) 15 gm PO PRN PRN; Protocol PRN Reason: For BG 50-69 in Alert Patient Stop: 10/06/20 11:13 Glucose (Dextrose 40% Gel 15 Gm Tube) 30 gm PO PRN PRN; Protocol PRN Reason: FOR BG < 50 IN ALERT PATIENT Stop: 10/06/20 11:13 Sodium Chloride (Normal Saline Flush 2.5 Ml Disp.Syrin) 2.5 ml IV Q8 JUAN Stop: 10/06/20 05:59 Last Admin: 09/06/20 06:41 Dose: 2.5 ml Documented by: - Allergies Allergies/Adverse Reactions: Sulfa (Sulfonamide Antibiotics) Allergy (Severe, Verified 02/06/14 10:58) Hives - Diet/Activity Discharge Diet: Other (Comments) - NPO Hospital Course Hospital Course: HPI According to admitting provider: MARC MAURER is a 79 year old female The patient has locally metastatic lung cancer for about 6 years. She had several lung lesions but as far as I know she did not have any widespread metastatic disease. She never had lung surgery, she did not receive radiation therapy. She is being treated with chemotherapy and immunotherapy. Disease is reasonably well controlled. She does not have any hypoxic respiratory failure. The patient has hypertension and dyslipidemia. She never suffered a stroke. History was obtained from the patient's son. They were watching TV and last night ,around 930 pm the patient suddenly developed a spell with staring away. After the spell the developed confusion and inability to speak normally. Nothing ever happened like that. She was able to move her arms and legs. She was brought to the emergency department. Initially thrombolytic treatment was considered but eventually the consulting neurologist from [facility] recommended not to proceed with thrombolytic treatment. The diagnosis was uncertain. The patient speech continues to improve though she remained conf used. Now she is able to say certain things perfectly fine but her speech is far from being normal. Sometimes she produces only mixed words without much of meaning. She does not appear to be in any distress. When I went to see her she wanted to eat and drink. She did not appear to be in pain or respiratory distress. She was confused, oriented only to herself. Hospital Course: Patient presented with severe aphasia and blank stare. According to documentation, it seems last known normal was 9:30 PM last night. Consultation was done with neurology PA at [facility] and recommendation was given for Keppra and evaluation for seizure. CTA head and neck was performed which revealed 4 mm aneurysm in the left M1 at the bifurcation of M2. It also picked up on a mural thrombus in the thoracic aorta. MRI of the brain was subsequently performed which shows recent CVA in the left MCA distribution. Reviewing the crime investigator special agent this morning no evidence of A. fib has been noted. Patient will benefit from a LYNDSEY to evaluate for intramural thrombus especially given the finding of mural thrombus in the aorta. I performed consultation with Dr. Paulo Chambers as well as hospitalist who has accepted patient for transfer. Neurology recommends continuation of aspirin for now and holding off on initiation of anticoagulation therapy. Patient failed speech therapy swallow evaluation and is recommended to be strict n.p.o. as of now. Receiving rectal aspirin. Physical Exam Vital Signs: Temp Pulse Resp BP Pulse Ox 98.2 F 84 16 101/82 100 09/06/20 12:29 09/06/20 12:29 09/06/20 12:30 09/06/20 12:30 09/06/20 12:29 Intake & Output 09/05/20 09/06/20 09/07/20 06:59 06:59 06:59 Intake Total 100 Output Total 1200 Balance 100 -1200 Weight 69.2 kg General appearance: PRESENT: no acute distress, cooperative Eye exam: PRESENT: PERRLA. ABSENT: scleral icterus Neck exam: ABSENT: JVD Respiratory exam: PRESENT: symmetrical, unlabored, wheezes. ABSENT: accessory muscle use, tachypnea Cardiovascular exam: PRESENT: RRR, +S1, +S2. ABSENT: tachycardia GI/Abdominal exam: PRESENT: soft. ABSENT: rebound, rigid, tenderness Neurological exam: PRESENT: alert, awake, motor sensory deficit - right arm, aphasic, other - confused Psychiatric exam: ABSENT: agitated, anxious Results Laboratory Results: 09/05/20 22:31 09/05/20 22:31 09/05/20 09/05/20 09/05/20 22:31 22:31 22:31 WBC 8.5 RBC 4.38 Hgb 13.0 Hct 39.2 MCV 90 MCH 29.6 MCHC 33.0 RDW 14.9 H Plt Count 241 Seg Neutrophils % 57.0 Sodium 136.7 L Potassium 4.1 Chloride 103 Carbon Dioxide 26 Anion Gap 8 BUN 29 H Creatinine 1.14 Est GFR ( Amer) 56 L Glucose 124 H Lactic Acid 0.8 Calcium 9.3 Total Bilirubin 0.4 AST 17 Alkaline Phosphatase 148 H Total Protein 7.3 Albumin 4.2 Urine Color Urine Appearance Urine pH Ur Specific [place] Urine Protein Urine Glucose (UA) Urine Ketones Urine Blood Urine Nitrite Ur Leukocyte Esterase Urine WBC (Auto) Urine RBC (Auto) 09/06/20 03:10 WBC RBC Hgb Hct MCV MCH MCHC RDW Plt Count Seg Neutrophils % Sodium Potassium Chloride Carbon Dioxide Anion Gap BUN Creatinine Est GFR ( Amer) Glucose Lactic Acid Calcium Total Bilirubin AST Alkaline Phosphatase Total Protein Albumin Urine Color YELLOW Urine Appearance CLEAR Urine pH 6.0 Ur Specific [place] 1.016 Urine Protein 30 H Urine Glucose (UA) NEGATIVE Urine Ketones NEGATIVE Urine Blood SMALL H Urine Nitrite NEGATIVE Ur Leukocyte Esterase NEGATIVE Urine WBC (Auto) 4 Urine RBC (Auto) 4 09/05/20 09/05/20 22:31 22:31 Creatine Kinase 56 Troponin I < 0.012 Impressions: Chest X-Ray 09/05/20 22:36 IMPRESSION: 1. Mild left basilar opacity may represent developing pneumonic process. Continued radiographic follow-up to resolution recommended. Head CT 09/05/20 22:36 IMPRESSION: 1. No acute intracranial hemorrhage is seen. 2. Mild cerebral atrophy and periventricular white matter changes are seen. If there is persistent clinical concern for a neurologic deficit, consider MRI brain with diffusion-weighted sequences for further evaluation. Head MRI 09/06/20 00:00 IMPRESSION: 1. Consistent with recent left MCA distribution CVA. Limited study as above. No gross intracranial hemorrhage. EVIDENCE OF ACUTE STROKE: NO. KUB X-Ray 09/06/20 00:33 IMPRESSION: 1. No acute abdominal findings. Head CTA 09/06/20 01:19 IMPRESSION: CTA NECK: 1. Normal CTA of the neck. There is no evidence of stenosis as per the NASCET criteria. 2. Atherosclerotic calcifications along the aortic arch and proximal great vessels. There is mural thrombus along the proximal descending thoracic aorta. 3. Parenchymal fibrosis suspected in the anterior and medial right upper lobe. CTA HEAD: 1. Findings suspicious for an aneurysm along the distal left M1 segment at the left M2 bifurcation measuring approximately 3 x 4 mm in diameter. 2. Otherwise, unremarkable intracranial CTA. Neck CTA 09/06/20 01:19 IMPRESSION: CTA NECK: 1. Normal CTA of the neck. There is no evidence of stenosis as per the NASCET criteria. 2. Atherosclerotic calcifications along the aortic arch and proximal great vessels. There is mural thrombus along the proximal descending thoracic aorta. 3. Parenchymal fibrosis suspected in the anterior and medial right upper lobe. CTA HEAD: 1. Findings suspicious for an aneurysm along the distal left M1 segment at the left M2 bifurcation measuring approximately 3 x 4 mm in diameter. 2. Otherwise, unremarkable intracranial CTA. Plan Time Spent: Greater than 30 Minutes
[2020-09-06] MEDS: ASPIRIN 300 MG SUPP, RECTAL PR SCH (12:54)
--- NOTE | 2020-09-06 13:18 | EKG REPORT ---
SEVERITY:- NORMAL ECG - SINUS RHYTHM : Confirmed by: Bette Shah 06-Sep-2020 13:17:38
[2020-09-06] MEDS ORDERED: ACETAMINOPHEN 650 MG SUPP.RECT PR PRN (13:19)
--- NOTE | 2020-09-06 14:45 | XCELERA REPORT ---
[address] [address] Transthoracic Echocardiogram Report Name: MARC MAURER Age: 79 yrs Gender: Female : 1940 Patient Status: Inpatient Patient Location: [place] [address]^A Study Date: 09/06/2020 10:21 AM Height: 65 in Weight: 152 lb BSA: 1.8 m2 Procedure: A complete two-dimensional transthoracic echocardiogram was performed (2D, M-mode, spectral and color flow Doppler). The study was technically adequate with some images being suboptimal in quality. There was technical limitations during this study due to uncooperative patient. Reason For Study: CVA Previous Evaluation: No previous studies were available. Ordering Physician: NEERAJ ROTHMAN Performed By: Morris Tompkins Interpretation Summary Tchnically limited study with poor echocardiographic windows. The left ventricle is grossly normal size. Left ventricular systolic function is normal. The Ejection Fraction estimate is 65-70%. Doppler measurements suggest impaired left ventricular relaxation, which is associated with grade I/IV or mild diastolic dysfunction. Regional wall motion abnormalities cannot be excluded due to limited visualization. Interarterial septum not well visualized and not well dopplered. Cannot comment on ASD/PFO presence. Mild LAE. Trace MR, trace TR, trace PI. No prior studies for comparison. MMode/2D Measurements & Calculations RVDd: 2.8 cm LVIDd: 4.5 cm FS: 43.3 % Ao root diam: 2.6 cm IVSd: 1.0 cm LVIDs: 2.6 cm EDV(Teich): Ao root area: LVPWd: 0.96 cm 93.9 ml 5.2 cm2 ESV(Teich): LA dimension: 4.0 cm 23.9 ml EF(Teich): 74.6 % LVLd ap4: 7.1 cm SV(MOD-sp4): EDV(MOD-sp4): 40.0 ml 58.0 ml LVLs ap4: 5.8 cm ESV(MOD-sp4): 18.0 ml EF(MOD-sp4): 69.0 % Doppler Measurements & Calculations MV E max helene: MV P1/2t max helene: Ao V2 max: LV V1 max P.0 cm/sec 70.4 cm/sec 167.0 cm/sec 4.2 mmHg MV A max helene: MV P1/2t: 73.8 msec Ao max PG: LV V1 max: 119.5 cm/sec MVA(P1/2t): 3.0 cm2 11.1 mmHg 102.6 cm/sec MV E/A: 0.57 MV dec slope: 279.4 cm/sec2 MV dec time: 0.24 sec PA V2 max: PI end-d helene: TR max helene: MV P1/2t-pr_phl: 60.9 cm/sec 91.1 cm/sec 254.0 cm/sec 73.8 msec PA max P.5 mmHg TR max P.8 mmHg Left Ventricle The left ventricle is grossly normal size. Left ventricular systolic function is normal. The Ejection Fraction estimate is 65-70%. Doppler measurements suggest impaired left ventricular relaxation, which is associated with grade I/IV or mild diastolic dysfunction. Regional wall motion abnormalities cannot be excluded due to limited visualization. Right Ventricle The right ventricle is grossly normal size. The right ventricular systolic function is normal. Atria The right atrium is normal. The left atrium is mildly dilated. Interarterial septum not well visualized and not well dopplered. Cannot comment on ASD/PFO presence. Mitral Valve The mitral valve leaflets are sclerotic and show some degree of functional abnormality. There is no evidence of mitral valve prolapse. There is no vegetation seen on the mitral valve. There is no mitral valve stenosis. There is a trace amount of mitral regurgitation. Aortic Valve The aortic valve is normal in structure and functions normally. The aortic valve is trileaflet. There is no aortic valvular vegetation. There is no aortic valve stenosis. There is a trace amount of aortic regurgitation. Tricuspid Valve The tricuspid valve is not well visualized, but is grossly normal. There is no tricuspid valve prolapse. There is no tricuspid valve vegetation. There is no tricuspid stenosis. There is a trace or physiologic amount of tricuspid regurgitation. Pulmonic Valve The pulmonic valve is not well visualized. There is no vegetation on the pulmonic valve. There is no pulmonic valvular stenosis. There is a trace or physiologic amount of pulmonic regurgitation. Great Vessels The aortic root is normal size. The inferior vena cava appeared small and collapsed with respiration (RAP 0-5 mmHg). : NEERAJ ROTHMAN Antonio
[2020-09-06] MEDS ORDERED: ATORVASTATIN CALCIUM 40 MG TABLET PO SCH (22:00)
[2020-09-07 07:14] LABS: ALBUMIN 3.8 g/dL (3.5-5.0); ALKALINE PHOSPHATASE 124 U/L (38-126); ANION GAP 7 (5-19); ASPARTATE AMINO TRANSFERASE 29 U/L (14-36); BILIRUBIN,DIRECT 0.2 mg/dL (0.0-0.4); BILIRUBIN,TOTAL 0.6 mg/dL (0.2-1.3); BLOOD UREA NITROGEN 24 mg/dL (7-20); CALCIUM 9.5 mg/dL (8.4-10.2); CARBON DIOXIDE 25 mmol/L (22-30); CHLORIDE 109 mmol/L (98-107); CHOLESTEROL 172.91 mg/dL (0-200); GLUCOSE 93 mg/dL (75-110); POTASSIUM 4.5 mmol/L (3.6-5.0); TOTAL PROTEIN 6.9 g/dL (6.3-8.2); TRIGLYCERIDES 173 mg/dL (<150)
[2020-09-07 07:15] LABS: ABSOLUTE BASOPHILS # (AUTO) 0.1 10^3/uL (0.0-0.2); ABSOLUTE EOSINOPHILS # (AUTO) 0.3 10^3/uL (0.0-0.6); ABSOLUTE LYMPHOCYTES (AUTO) 1.1 10^3/uL (0.5-4.7); ABSOLUTE MONOCYTES (AUTO) 0.5 10^3/uL (0.1-1.4); ABSOLUTE NEUT (AUTO) 7.5 10^3/uL (1.7-8.2); BASOPHILS % (AUTO) 1.2 % (0-2); EOSINOPHILS % (AUTO) 3.5 % (0-6); HEMATOCRIT 38.6 % (36.0-47.0); LYMPHOCYTES % (AUTO) 11.7 % (13-45); MEAN CORPUSCULAR HEMOGLOBIN 30.2 pg (27.0-33.4); MEAN CORPUSCULAR HGB CONC 33.6 g/dL (32.0-36.0); MEAN CORPUSCULAR VOLUME 90 fl (80-97); MONOCYTES % (AUTO) 5.2 % (3-13); PLATELET COUNT 217 10^3/uL (150-450); RED BLOOD COUNT 4.29 10^6/uL (3.72-5.28); SEGMENTED NEUTROPHILS % (AUTO) 78.4 % (42-78); TOTAL CELLS COUNTED % (AUTO) 100 %; WHITE BLOOD COUNT 9.6 10^3/uL (4.0-10.5)
[2020-09-07 07:25] LABS: DIRECT LDL 111 mg/dL (<100)
[2020-09-07 07:30] LABS: VLDL CHOLESTEROL 34.6 mg/dL (10-31)
[2020-09-07] MEDS: ASPIRIN 300 MG SUPP, RECTAL PR SCH (10:39)
--- NOTE | 2020-09-07 17:59 | PDOC PROGRESS REPORT ---
Subjective Subjective:: Per Previous Physician: "HPI According to admitting provider: MARC MAURER is a 79 year old female The patient has locally metastatic lung cancer for about 6 years. She had several lung lesions but as far as I know she did not have any widespread metastatic disease. She never had lung surgery, she did not receive radiation therapy. She is being treated with chemotherapy and immunotherapy. Disease is reasonably well controlled. She does not have any hypoxic respiratory failure. The patient has hypertension and dyslipidemia. She never suffered a stroke. History was obtained from the patient's son. They were watching TV and last night ,around 930 pm the patient suddenly developed a spell with staring away. After the spell the developed confusion and inability to speak normally. Nothing ever happened like that. She was able to move her arms and legs. She was brought to the emergency department. Initially thrombolytic treatment was considered but eventually the consulting neurologist from [facility] recommended not to proceed with thrombolytic treatment. The diagnosis was uncertain. The patient speech continues to improve though she remained confused. Now she is able to say certain things perfectly fine but her speech is far from being normal. Sometimes she produces only mixed words without much of meaning. She does not appear to be in any distress. When I went to see her she wanted to eat and drink. She did not appear to be in pain or respiratory distress. She was confused, oriented only to herself. Hospital Course: Patient presented with severe aphasia and blank stare. According to documentation, it seems last known normal was 9:30 PM last night. Consultation was done with neurology PA at [facility] and recommendation was given for Keppra and evaluation for seizure. CTA head and neck was performed which revealed 4 mm aneurysm in the left M1 at the bifurcation of M2. It also picked up on a mural thrombus in the thoracic aorta. MRI of the brain was subsequently performed which shows recent CVA in the left MCA distribution. Reviewing the residential monitor this morning no evidence of A. fib has been noted. Patient will benefit from a LYNDSEY to evaluate for intramural thrombus especially given the finding of mural thrombus in the aorta. I performed consultation with Dr. Paulo Chambers as well as hospitalist who has accepted patient for transfer. Neurol ogy recommends continuation of aspirin for now and holding off on initiation of anticoagulation therapy. Patient failed speech therapy swallow evaluation and is recommended to be strict n.p.o. as of now. Receiving rectal aspirin." 09/07/2020 Patient is awaiting transfer to [facility]. Patient has reportedly been accepted to the hospitalist service. Patient continues to have word finding difficulty and dysarthria which seems to get worse the more she talks. Her blood pressure is well controlled. Her creatinine is lower. Covid is negative. She is unable to articulate any specific complaints today. I spent a long time trying to understand and answer her questions today which was quite challenging due to the severe dysarthria. She seemed to understand and agree to the plan. Reason For Visit: CVA LIKE SYMPTOMS Physical Exam Vital Signs: Temp Pulse Resp BP Pulse Ox 98.9 F 90 16 126/43 H 99 09/07/20 15:58 09/07/20 15:58 09/07/20 15:58 09/07/20 15:58 09/07/20 15:58 Intake & Output 09/06/20 09/07/20 09/08/20 06:59 06:59 06:59 Intake Total 100 100 Output Total 1700 Balance 100 -1600 Weight 69.2 kg 64.8 kg Exam: General appearance: PRESENT: no acute distress, well-developed, well-nourished Head exam: PRESENT: atraumatic, normocephalic Eye exam: PRESENT: conjunctiva pink. ABSENT: scleral icterus Mouth exam: PRESENT: moist Respiratory exam: PRESENT: clear to auscultation damaris. ABSENT: rales, rhonchi, wheezes Cardiovascular exam: PRESENT: RRR. ABSENT: diastolic murmur, rubs, systolic murmur GI/Abdominal exam: PRESENT: normal bowel sounds, soft. ABSENT: distended, guarding, mass, organolmegaly, rebound, tenderness Neurological exam: PRESENT: alert, awake; unable to assess orientation due to severe dysarthria; right upper extremity weakness Skin exam: PRESENT: dry, intact, warm Results Laboratory Results: 09/07/20 06:20 09/07/20 06:20 09/07/20 09/07/20 06: 06:20 WBC 9.6 RBC 4.29 Hgb 13.0 Hct 38.6 MCV 90 MCH 30.2 MCHC 33.6 RDW 15.0 H Plt Count 217 Seg Neutrophils % 78.4 H Sodium 140.7 Potassium 4.5 Chloride 109 H Carbon Dioxide 25 Anion Gap 7 BUN 24 H Creatinine 1.08 Est GFR ( Amer) > 60 Glucose 93 Calcium 9.5 Total Bilirubin 0.6 AST 29 Alkaline Phosphatase 124 Total Protein 6.9 Albumin 3.8 Triglycerides 173 H Cholesterol 172.91 LDL Cholesterol Direct 111 H VLDL Cholesterol 34.6 H HDL Cholesterol 40 09/05/20 09/05/20 22:31 22:31 Creatine Kinase 56 Troponin I < 0.012 Impressions: Chest X-Ray 09/05/20 22:36 IMPRESSION: 1. Mild left basilar opacity may represent developing pneumonic process. Continued radiographic follow-up to resolution recommended. Head CT 09/05/20 22:36 IMPRESSION: 1. No acute intracranial hemorrhage is seen. 2. Mild cerebral atrophy and periventricular white matter changes are seen. If there is persistent clinical concern for a neurologic deficit, consider MRI brain with diffusion-weighted sequences for further evaluation. Head MRI 09/06/20 00:00 IMPRESSION: 1. Consistent with recent left MCA distribution CVA. Limited study as above. No gross intracranial hemorrhage. EVIDENCE OF ACUTE STROKE: NO. KUB X-Ray 09/06/20 00:33 IMPRESSION: 1. No acute abdominal findings. Head CTA 09/06/20 01:19 IMPRESSION: CTA NECK: 1. Normal CTA of the neck. There is no evidence of stenosis as per the NASCET criteria. 2. Atherosclerotic calcifications along the aortic arch and proximal great vessels. There is mural thrombus along the proximal descending thoracic aorta. 3. Parenchymal fibrosis suspected in the anterior and medial right upper lobe. CTA HEAD: 1. Findings suspicious for an aneurysm along the distal left M1 segment at the left M2 bifurcation measuring approximately 3 x 4 mm in diameter. 2. Otherwise, unremarkable intracranial CTA. Neck CTA 09/06/20 01:19 IMPRESSION: CTA NECK: 1. Normal CTA of the neck. There is no evidence of stenosis as per the NASCET criteria. 2. Atherosclerotic calcifications along the aortic arch and proximal great vessels. There is mural thrombus along the proximal descending thoracic aorta. 3. Parenchymal fibrosis suspected in the anterior and medial right upper lobe. CTA HEAD: 1. Findings suspicious for an aneurysm along the distal left M1 segment at the left M2 bifurcation measuring approximately 3 x 4 mm in diameter. 2. Otherwise, unremarkable intracranial CTA. Assessment and Plan - Diagnosis (1) Abnormal chest xray Is this a current diagnosis for this admission?: Yes (2) Acute ischemic cerebrovascular accident (CVA) involving left middle cerebral artery territory Is this a current diagnosis for this admission?: Yes (3) Aphasia due to acute stroke Is this a current diagnosis for this admission?: Yes (4) Brain aneurysm Is this a current diagnosis for this admission?: Yes (5) Hypertension Qualifiers: Hypertension type: essential hypertension Qualified Code(s): I10 - Essential (primary) hypertension Is this a current diagnosis for this admission?: Yes (6) Lung cancer Qualifiers: Laterality: unspecified laterality Lung location: unspecified part of lung Qualified Code(s): C34.90 - Malignant neoplasm of unspecified part of unspecified bronchus or lung Is this a current diagnosis for this admission?: Yes (7) Stroke-like symptoms Is this a current diagnosis for this admission?: Yes (8) Thrombosis of thoracic aorta Is this a current diagnosis for this admission?: Yes - Plan Summary Summary: (1) Stroke-like symptoms -Admitted for CVA -tPA not given -ASA, Statin -Lipid Panel -Carotid PVL -TTE -CT Head no acute findings -CTA head and neck was performed which revealed 4 mm aneurysm in the left M1 at the bifurcation of M2; mural thrombus in the thoracic aorta -MRI of the brain was subsequently performed which shows recent CVA in the left MCA distribution -Permissive HTN goal < 220/120 for 48hrs post-sx's onset or until CVA ruled out Transfer accepted by hospitalist at [facility], pending bed availability (2) Brain aneurysm Is this a current diagnosis for this admission?: Yes Plan: Per Previous Physician: "She has a small 3 x 4 mm intracranial aneurysm. This is definitely not causing her symptoms. She is going to follow-up with neurology." (3) Lung cancer Per Previous Physician: "She has lung cancer which involving several parts of her lung. She has been treated with chemotherapy and immunotherapy for 6 years. Metastatic disease to the brain cannot be excluded." (4) Abnormal chest xray Is this a current diagnosis for this admission?: Yes Plan: Unlikely pneumonia given no signs or symptoms of infection Given a dose of antibiotics in the ED and this was stopped (5) Hypertension Qualifiers: Hypertension type: essential hypertension Qualified Code(s): I10 - Essential (primary) hypertension Is this a current diagnosis for this admission?: Yes Plan: Per Previous Physician: "She is on atenolol at home. Continue monitoring blood pressure and resume atenolol when it is necessary." - Time Time Spent with patient: 25-34 minutes Medications reviewed and adjusted accordingly: Yes Anticipated Discharge Disposition: Tertiary Anticipated Discharge Timeframe: within 24 hours - Inpatient Certification Based on my medical assessment, after consideration of the patient's comorbidities, presenting symptoms, or acuity I expect that the services needed warrant INPATIENT care.: Yes I certify that my determination is in accordance with my understanding of Medicare's requirements for reasonable and necessary INPATIENT services [42 CFR 412.3e].: Yes Medical Necessity: Significant Comorbidiites Make Outpatient Treatment Too Risky, Need Close Monitoring Due to Risk of Patient Decompensation, Need for Neurological Checks, Risk of Complication if Not Cared For in Hospital, Risk of Diagnosis Which Will Require Inpatient Eval/Care/Monitoring
[2020-09-08 11:44] VITALS: BP 113/48
[2020-09-08] MEDS ORDERED: ASPIRIN 325 MG TABLET ONE (15:08)
[2020-09-08] MEDS: ASPIRIN 300 MG SUPP, RECTAL PR SCH ×2 (15:13→15:15)
--- NOTE | 2020-09-08 16:38 | PDOC PROGRESS REPORT ---
Subjective Subjective:: Per Previous Physician: "HPI According to admitting provider: MARC MAURER is a 79 year old female The patient has locally metastatic lung cancer for about 6 years. She had several lung lesions but as far as I know she did not have any widespread metastatic disease. She never had lung surgery, she did not receive radiation therapy. She is being treated with chemotherapy and immunotherapy. Disease is reasonably well controlled. She does not have any hypoxic respiratory failure. The patient has hypertension and dyslipidemia. She never suffered a stroke. History was obtained from the patient's son. They were watching TV and last night ,around 930 pm the patient suddenly developed a spell with staring away. After the spell the developed confusion and inability to speak normally. Nothing ever happened like that. She was able to move her arms and legs. She was brought to the emergency department. Initially thrombolytic treatment was considered but eventually the consulting neurologist from [facility] recommended not to proceed with thrombolytic treatment. The diagnosis was uncertain. The patient speech continues to improve though she remained confused. Now she is able to say certain things perfectly fine but her speech is far from being normal. Sometimes she produces only mixed words without much of meaning. She does not appear to be in any distress. When I went to see her she wanted to eat and drink. She did not appear to be in pain or respiratory distress. She was confused, oriented only to herself. Hospital Course: Patient presented with severe aphasia and blank stare. According to documentation, it seems last known normal was 9:30 PM last night. Consultation was done with neurology PA at [facility] and recommendation was given for Keppra and evaluation for seizure. CTA head and neck was performed which revealed 4 mm aneurysm in the left M1 at the bifurcation of M2. It also picked up on a mural thrombus in the thoracic aorta. MRI of the brain was subsequently performed which shows recent CVA in the left MCA distribution. Reviewing the bus monitor this morning no evidence of A. fib has been noted. Patient will benefit from a LYNDSEY to evaluate for intramural thrombus especially given the finding of mural thrombus in the aorta. I performed consultation with Dr. Paulo Chambers as well as hospitalist who has accepted patient for transfer. Neurol ogy recommends continuation of aspirin for now and holding off on initiation of anticoagulation therapy. Patient failed speech therapy swallow evaluation and is recommended to be strict n.p.o. as of now. Receiving rectal aspirin." 09/07/2020 Patient is awaiting transfer to [facility]. Patient has reportedly been accepted to the hospitalist service. Patient continues to have word finding difficulty and dysarthria which seems to get worse the more she talks. Her blood pressure is well controlled. Her creatinine is lower. Covid is negative. She is unable to articulate any specific complaints today. I spent a long time trying to understand and answer her questions today which was quite challenging due to the severe dysarthria. She seemed to understand and agree to the plan. 09/08/2020 I had a long discussion with the patient and her son at bedside today. I gave him a full update on the course thus far and the plan going forward and he is in full agreement with this. Patient seems to be mildly confused and is perseverating over her next dose of chemotherapy. I told him this will almost certainly need to be held until she is further healed from her stroke. We are still waiting on [facility] to have a bed available for the patient to transfer. Reason For Visit: CVA LIKE SYMPTOMS Physical Exam Vital Signs: Temp Pulse Resp BP Pulse Ox 98.6 F 96 22 H 113/48 L 92 09/08/20 15:32 09/08/20 15:49 09/08/20 15:49 09/08/20 15:49 09/08/20 15:49 Intake & Output 09/07/20 09/08/20 09/09/20 06:59 06:59 06:59 Intake Total 100 0 Output Total 1700 1230 180 Balance -1600 -1230 -180 Weight 64.8 kg 93.9 kg Exam: General appearance: PRESENT: no acute distress, well-developed, well-nourished, mildly confused with severe dysarthria Head exam: PRESENT: atraumatic, normocephalic Eye exam: PRESENT: conjunctiva pink. ABSENT: scleral icterus Mouth exam: PRESENT: moist Respiratory exam: PRESENT: clear to auscultation damaris. ABSENT: rales, rhonchi, wheezes Cardiovascular exam: PRESENT: RRR. ABSENT: diastolic murmur, rubs, systolic murmur GI/Abdominal exam: PRESENT: normal bowel sounds, soft. ABSENT: distended, guarding, mass, organolmegaly, rebound, tenderness Neurological exam: PRESENT: alert, awake; unable to assess orientation due to severe dysarthria; right upper extremity weakness Skin exam: PRESENT: dry, intact, warm Results Laboratory Results: 09/07/20 06:20 09/07/20 06:20 09/06/20 03:10 Urine Color YELLOW Urine Appearance CLEAR Urine pH 6.0 Ur Specific [place] 1.016 Urine Protein 30 H Urine Glucose (UA) NEGATIVE Urine Ketones NEGATIVE Urine Blood SMALL H Urine Nitrite NEGATIVE Ur Leukocyte Esterase NEGATIVE Urine WBC (Auto) 4 Urine RBC (Auto) 4 09/06/20 03:10 Catheterized Urine Urine Culture - Final Aerococcus Urinae 09/05/20 09/05/20 22:31 22:31 Creatine Kinase 56 Troponin I < 0.012 Impressions: Chest X-Ray 09/05/20 22:36 IMPRESSION: 1. Mild left basilar opacity may represent developing pneumonic process. Continued radiographic follow-up to resolution recommended. Head CT 09/05/20 22:36 IMPRESSION: 1. No acute intracranial hemorrhage is seen. 2. Mild cerebral atrophy and periventricular white matter changes are seen. If there is persistent clinical concern for a neurologic deficit, consider MRI brain with diffusion-weighted sequences for further evaluation. Head MRI 09/06/20 00:00 IMPRESSION: 1. Consistent with recent left MCA distribution CVA. Limited study as above. No gross intracranial hemorrhage. EVIDENCE OF ACUTE STROKE: NO. KUB X-Ray 09/06/20 00:33 IMPRESSION: 1. No acute abdominal findings. Head CTA 09/06/20 01:19 IMPRESSION: CTA NECK: 1. Normal CTA of the neck. There is no evidence of stenosis as per the NASCET criteria. 2. Atherosclerotic calcifications along the aortic arch and proximal great vessels. There is mural thrombus along the proximal descending thoracic aorta. 3. Parenchymal fibrosis suspected in the anterior and medial right upper lobe. CTA HEAD: 1. Findings suspicious for an aneurysm along the distal left M1 segment at the left M2 bifurcation measuring approximately 3 x 4 mm in diameter. 2. Otherwise, unremarkable intracranial CTA. Neck CTA 09/06/20 01:19 IMPRESSION: CTA NECK: 1. Normal CTA of the neck. There is no evidence of stenosis as per the NASCET criteria. 2. Atherosclerotic calcifications along the aortic arch and proximal great vessels. There is mural thrombus along the proximal descending thoracic aorta. 3. Parenchymal fibrosis suspected in the anterior and medial right upper lobe. CTA HEAD: 1. Findings suspicious for an aneurysm along the distal left M1 segment at the left M2 bifurcation measuring approximately 3 x 4 mm in diameter. 2. Otherwise, unremarkable intracranial CTA. Assessment and Plan - Diagnosis (1) Abnormal chest xray Is this a current diagnosis for this admission?: Yes (2) Acute ischemic cerebrovascular accident (CVA) involving left middle cerebral artery territory Is this a current diagnosis for this admission?: Yes (3) Aphasia due to acute stroke Is this a current diagnosis for this admission?: Yes (4) Brain aneurysm Is this a current diagnosis for this admission?: Yes (5) Hypertension Qualifiers: Hypertension type: essential hypertension Qualified Code(s): I10 - Essential (primary) hypertension Is this a current diagnosis for this admission?: Yes (6) Lung cancer Qualifiers: Laterality: unspecified laterality Lung location: unspecified part of lung Qualified Code(s): C34.90 - Malignant neoplasm of unspecified part of unspecified bronchus or lung Is this a current diagnosis for this admission?: Yes (7) Stroke-like symptoms Is this a current diagnosis for this admission?: Yes (8) Thrombosis of thoracic aorta Is this a current diagnosis for this admission?: Yes - Plan Summary Summary: (1) Stroke-like symptoms -Admitted for CVA -tPA not given -ASA, Statin -Lipid Panel -Carotid PVL -TTE -CT Head no acute findings -CTA head and neck was performed which revealed 4 mm aneurysm in the left M1 at the bifurcation of M2; mural thrombus in the thoracic aorta -MRI of the brain was subsequently performed which shows recent CVA in the left MCA distribution -Permissive HTN goal < 220/120 for 48hrs post-sx's onset or until CVA ruled out Transfer accepted by hospitalist at [facility], pending bed availability (2) Brain aneurysm Is this a current diagnosis for this admission?: Yes Plan: Per Previous Physician: "She has a small 3 x 4 mm intracranial aneurysm. This is definitely not causing her symptoms. She is going to follow-up with neurology." (3) Lung cancer Per Previous Physician: "She has lung cancer which involving several parts of her lung. She has been treated with chemotherapy and immunotherapy for 6 years. Metastatic disease to the brain cannot be excluded." (4) Abnormal chest xray Is this a current diagnosis for this admission?: Yes Plan: Unlikely pneumonia given no signs or symptoms of infection Given a dose of antibiotics in the ED and this was stopped (5) Hypertension Qualifiers: Hypertension type: essential hypertension Qualified Code(s): I10 - Essential (primary) hypertension Is this a current diagnosis for this admission?: Yes Plan: Per Previous Physician: "She is on atenolol at home. Continue monitoring blood pressure and resume atenolol when it is necessary." - Time Time Spent with patient: 25-34 minutes Medications reviewed and adjusted accordingly: Yes Anticipated Discharge Disposition: Tertiary Anticipated Discharge Timeframe: within 24 hours - Inpatient Certification Based on my medical assessment, after consideration of the patient's com orbidities, presenting symptoms, or acuity I expect that the services needed warrant INPATIENT care.: Yes I certify that my determination is in accordance with my understanding of Medicare's requirements for reasonable and necessary INPATIENT services [42 CFR 412.3e].: Yes Medical Necessity: Significant Comorbidiites Make Outpatient Treatment Too Risky, Need Close Monitoring Due to Risk of Patient Decompensation, Need for Neurological Checks, Risk of Complication if Not Cared For in Hospital, Risk of Diagnosis Which Will Require Inpatient Eval/Care/Monitoring
[2020-09-09] MEDS ORDERED: ASPIRIN 325 MG TABLET, ENT COATED PO SCH (08:00)
== END 2020-09-08 20:03 | disposition short-term general hospital (02) | DRG 65 ==
LOC: ER 22:24 → EH 09-06 06:01 → 3S 09-06 14:07
PROVIDERS: ADMIT Internal Medicine; ATTEND Internal Medicine
PROC: B24BZZ4 Ultrasonography of Heart with Aorta, Transesophageal (ICD-10-PCS; principal; 2020-09-06)
DX: I63.511 Cerebral infarction due to unspecified occlusion or stenosis of right middle cerebral artery (principal); I74.11 Embolism and thrombosis of thoracic aorta; C34.90 Malignant neoplasm of unspecified part of unspecified bronchus or lung; R47.01 Aphasia; Z20.828 Contact with and (suspected) exposure to other viral communicable diseases; I67.1 Cerebral aneurysm, nonruptured; E78.5 Hyperlipidemia, unspecified; I10 Essential (primary) hypertension; K21.9 Gastro-esophageal reflux disease without esophagitis; Z88.2 Allergy status to sulfonamides; Z92.21 Personal history of antineoplastic chemotherapy; Z87.891 Personal history of nicotine dependence; Z83.3 Family history of diabetes mellitus; Z79.82 Long term (current) use of aspirin; Z79.899 Other long term (current) drug therapy; Z85.528 Personal history of other malignant neoplasm of kidney
CPT/HCPCS: 36415; 70450; 70496; 70498; 70553; 71045; 74018; 80053; 80061; 81001; 82550; 82962; 83036; 83605; 84484; 85025; 85610; 87040; 87086; 87088; 93005; 93010; 93306; 96365; 96366; 96367; 96368; 96375; 99285; 0241U; A9576; C9803; J0456; J0696; J1100; J1953; J2060; J3490; S0028

== ENCOUNTER → 2020-10-17 | Outpatient (CLI) | payer MEDICARE, OTHER ==
--- NOTE | 2020-10-17 13:05 | RADIOLOGY REPORT (SQ) ---
EXAM DESCRIPTION: CT CHEST WITH; CT ABD/PELVIS WITH IV ONLY IMAGES COMPLETED DATE/TIME: 10/17/2020 10:56 am REASON FOR STUDY: MALIGNANT NEOPLASM OF LOWER LOBE, LEFT BRONCHUS OR LUNG C34.32 MALIGNANT NEOPLASM OF LOWER LOBE, LEFT BRONCHUS OR GABRIELLA CONTRAST TYPE AND DOSE: contrast/concentration: Isovue 300.00 mmol/ml; Total Contrast Delivered: 88. 0 ml; Total Saline Delivered: 46.0 ml RENAL FUNCTION: BUN 17 creatinine 0.9 COMPARISON: 07/05/2020 TECHNIQUE: CT scan of the chest performed using helical scanning technique with dynamic intravenous contrast injection. Images reviewed with lung, soft tissue and bone windows. Reconstructed coronal a nd sagittal MPR images reviewed. All images stored on PACS. All CT scanners at this facility use dose modulation, iterative reconstruction, and/or weight based d osing when appropriate to reduce radiation dose to as low as reasonably achievable (ALARA). [facility]: Dose Right [facility]: CareDose [facility]: Dose Right [facility]: Teradose 4D [facility]: [employer] RADIATION DOSE: CT Rad equipment meets quality standard of care and radiation dose reduction techniq ues were employed. CTDIvol: 5.2 - 8.1 mGy. DLP: 1486 mGy-cm. . LIMITATIONS: None. FINDINGS: AXILLAE: No adenopathy. CHEST WALL: No masses. No subcutaneous air. LUNGS: Surgical changes in the right upper lobe. Reticulonodular findings is seen in the medial aspe ct of the right upper lobe anteriorly. 2 contiguous subcentimeter size nodules are seen on image 48. The larger nodule seen on image 47 of the prior study is significantly less prominent and is sub so lid on today's study an 8 mm subpleural nodule is seen in the left lower lobe on image 69. This show s no change. A slightly irregular 10 mm nodule is seen in the medial left lower lobe on image 84. T his is stable. PLEURA: No effusions. No calcifications. THYROID: No masses or significant asymmetry. HILAR AND MEDIASTINAL STRUCTURES: No identified masses or abnormal nodes. AORTA AND GREAT VESSELS: No aneurysm. No dissection. PULMONARY ARTERIES: No identified pulmonary emboli. Study not optimized for the pulmonary arteries. HEART: Small pericardial effusion is present. This shows no significant change. HARDWARE AND LIFELINES: Injection port on the left. BONES: No significant finding. OTHER: No other significant finding. IMPRESSION: There is improvement in the of 13 x 10 mm right upper lobe nodule seen on the prior stud y. Remaining findings in the chest are stable including reticulonodular density in the medial aspect of the right upper lobe and small pulmonary nodules as described. COMPARISON: 04/04/2020 RADIATION DOSE: CT Rad equipment meets quality standard of care and radiation dose reduction techniq ues were employed. CTDIvol: 5.2 - 8.1 mGy. DLP: 1486 mGy-cm. mGy. TECHNIQUE: CT scan of the abdomen and pelvis performed with intravenous and oral contrast using suma christopher scanning technique with dynamic intravenous contrast injection. Images reviewed with lung, soft tissue and bone windows. Reconstructed coronal and sagittal MPR images reviewed. Delayed images for evaluation of the urinary system also acquired and evaluated. All images stored on PACS. All CT scanners at this facility use dose modulation, iterative reconstruction, and/or weight based d osing when appropriate to reduce radiation dose to as low as reasonably achievable (ALARA). [facility]: Dose Right [facility]: [employer] [facility]: Dose Right [facility]: Teradose 4D [facility]: [employer] FINDINGS: LIVER: Normal size. No masses. No dilated ducts. SPLEEN: Normal size. No focal lesions. PANCREAS: No masses. No significant calcifications. No adjacent inflammation or peripancreatic flui d collections. Pancreatic duct not dilated. GALLBLADDER: A few poorly calcified gallstones are present. ADRENAL GLANDS: No significant masses or asymmetry. RIGHT KIDNEY AND URETER: No solid masses. Resection of a small portion of the lower pole. Nonobstr ucting intrarenal calculi. No hydronephrosis or hydroureter. LEFT KIDNEY AND URETER: A 33 mm solid mass on the anteromedial cortex of the lower pole shows no sign ificant change. There are some nonobstructing intrarenal calculi. No hydronephrosis or hydrourete r. AORTA AND VESSELS: No aneurysm. There is atherosclerosis including atherosclerosis in the proximal l eft renal artery. RETROPERITONEUM: No retroperitoneal adenopathy, hemorrhage or masses. LARGE AND SMALL BOWEL: Sigmoid diverticulosis with no acute inflammatory change. No obvious bowel ma ss. APPENDIX: Not identified. ABDOMINAL WALL: There is a direct inguinal hernia on the left containing unobstructed bowel. There i s an 18 mm rounded area of increased density in the subcutaneous fat to the right of the midline on i mage 57. PERITONEAL CAVITY: No free air. No free fluid. No peritoneal implants or masses. PELVIS: No mass or free fluid. Normal bladder. BONES: No significant or acute findings. OTHER: No other significant finding. IMPRESSION: 1. There is no evidence of metastatic disease in the abdomen or pelvis. 2. Cholelithiasis. 3. Intrarenal calculi. Stable left renal mass. 4. Diverticulosis coli. 5. Direct inguinal hernia on the left contains unobstructed sigmoid colon. 6. There is an area of increased density in the subcutaneous fat anteriorly on the right. This may represent an area of fat necrosis TECHNICAL DOCUMENTATION: JOB ID: [id number] Quality ID # [id number]: Final reports with documentation of one or more dose reduction techniques (e.g., Au tomated exposure control, adjustment of the mA and/or kV according to patient size, use of iterative reconstruction technique) 2010 [employer]- All Rights Reserved Reading location - IP/workstation name: [email or web address]
== END ==
LOC: RAD 09:48
PROVIDERS: ATTEND Internal Medicine
DX: C34.32 Malignant neoplasm of lower lobe, left bronchus or lung (principal); K80.20 Calculus of gallbladder without cholecystitis without obstruction; K57.30 Diverticulosis of large intestine without perforation or abscess without bleeding; K40.90 Unilateral inguinal hernia, without obstruction or gangrene, not specified as recurrent; N28.89 Other specified disorders of kidney and ureter
CPT/HCPCS: 71260; 74177